=== PATIENT | male | born 1965 | race Caucasian/White ===

== ENCOUNTER 2021-05-04 03:33 | Outpatient (CLI) | payer BC, SELFPAY ==
[2021-05-04 15:06] LABS: Abs Immature Grans 0.05 10^3/uL (0.0-0.06); Absolute Basophil Count 0.06 10^3/uL (0.0-0.2); Absolute Eosinophil Count 0.27 10^3/uL (0.0-0.7); Absolute Monocyte Count 0.73 10^3/uL (0.1-0.8); Absolute Neutrophil Count 5.79 10^3/uL (1.2-6.7); Basophils % 0.7; HCT 43.8 % (40.0-50.0); HGB 14.7 g/dL (13.5-17.5); Immature Grans % 0.6; Lymphocytes % 23.3; MCH 29.3 pg (27.0-33.0); MCHC 33.6 % (32.0-36.0); MCV 87.3 fL (80-95); MPV 11.3 fL (8.0-11.0); Monocytes % 8.1; Neutrophils % 64.3; Nucleated RBC 0 %; Platelet Count 192 10^3/uL (130-400); RBC 5.02 10^6/uL (4.36-5.78); RDW 13.8 % (11.8-14.1); RDW-SD 43.4 fL
[2021-05-04 15:08] LABS: ESR 3 mm/hr (0-20)
[2021-05-04 16:59] LABS: ALT 42 U/L (16-63); AST 21 U/L (15-37); Albumin 4.1 g/dL (3.4-5.0); Alkaline Phosphatase 77 U/L (46-116); Bilirubin, Direct 0.2 mg/dL (0.0-0.2); Bilirubin, Total 0.9 mg/dL (0.2-1.0); Total Protein 6.8 g/dL (6.4-8.2)
== END 2021-05-04 03:34 | disposition home or self-care (01) ==
LOC: LBO 03:33
PROVIDERS: Visit Provider Internal Medicine
DX: L40.50 Arthropathic psoriasis, unspecified (principal); L40.9 Psoriasis, unspecified; M25.561 Pain in right knee; M25.562 Pain in left knee; G89.29 Other chronic pain
CPT/HCPCS: 36415; 80076; 85652; 82565; 85025; 86140

== ENCOUNTER → 2021-05-11 02:54 | Outpatient (CLI) | payer BC, SELFPAY ==
--- NOTE | 2021-05-11 15:10 | DI.RAD_ITS ---
Exam(s) XR LUMBAR SPINE AP, LAT EXAM: XR LUMBAR SPINE AP, LAT CLINICAL HISTORY: CHRONIC LOW BACK PAIN,M54.41SI JOINT DISEASE,M53.3. TECHNIQUE: 2D digital imaging was performed. COMPARISON: No exams were available for comparison FINDINGS: 3 views No evidence of compression fracture nor significant listhesis. No pars defects. There is moderate d isc space narrowing at each level in the lumbar spine. There also facet arthropathy changes at multi ple levels. No scoliosis. There appears to be probable spinal canal stenosis here. No scoliosis. No osseous lesions. Left-sided osteophytes noted at L1-2 level. IMPRESSION: Chronic multilevel degenerative changes. There is most probably also an element of spinal canal sten osis. If clinically indicated follow-up MRI can be performed. DATA REPOSITORY: RADIATION DOSE DELIVERED:
--- NOTE | 2021-05-11 15:10 | DI.RAD_ITS ---
Exam(s) XR SACROILIAC JOINTS EXAM: XR SACROILIAC JOINTS CLINICAL HISTORY: INFLAMMATORY ARTHOPATHY WITH BACK AND SI JOINT PAIN,M54.441,M53.3. TECHNIQUE: 2D digital imaging was performed. COMPARISON: No exams were available for comparison FINDINGS: 3 views None no evidence of fracture. No obvious radiographic evidence of sacroiliitis. No ankylosis of the SI joints. Visualized hips appear unremarkable. No osseous lesions IMPRESSION: DATA REPOSITORY: RADIATION DOSE DELIVERED:
== END ==
PROVIDERS: Visit Provider Internal Medicine
DX: M54.41 Lumbago with sciatica, right side (principal); M53.3 Sacrococcygeal disorders, not elsewhere classified; M51.16 Intervertebral disc disorders with radiculopathy, lumbar region; M47.26 Other spondylosis with radiculopathy, lumbar region; M48.061 Spinal stenosis, lumbar region without neurogenic claudication; G89.29 Other chronic pain
CPT/HCPCS: 72100; 72202

== ENCOUNTER 2021-06-01 05:02 | Outpatient (CLI) | payer BC, SELFPAY | END 2021-06-01 05:03 | disposition home or self-care (01) | LOC: LBO 05:02 | PROVIDERS: Visit Provider Internal Medicine ==

== ENCOUNTER 2021-06-29 04:06 | Outpatient (CLI) | payer BC, SELFPAY ==
[2021-06-29 14:59] LABS: Abs Immature Grans 0.08 10^3/uL (0.0-0.06); Absolute Basophil Count 0.07 10^3/uL (0.0-0.2); Absolute Eosinophil Count 0.23 10^3/uL (0.0-0.7); Absolute Lymphocyte Count 2.22 10^3/uL (1.2-3.4); Absolute Monocyte Count 0.62 10^3/uL (0.1-0.8); Absolute Neutrophil Count 5.47 10^3/uL (1.2-6.7); Basophils % 0.8; Eosinophils % 2.6; HCT 43.2 % (40.0-50.0); HGB 14.5 g/dL (13.5-17.5); Immature Grans % 0.9; Lymphocytes % 25.5; MCH 29.1 pg (27.0-33.0); MCHC 33.6 % (32.0-36.0); MCV 87 fL (80-95); MPV 11.1 fL (8.0-11.0); Monocytes % 7.1; Neutrophils % 63.1; Platelet Count 211 10^3/uL (130-400); RBC 4.98 10^6/uL (4.36-5.78); RDW 13.4 % (11.8-14.1); RDW-SD 41.8 fL; WBC 8.69 10^3/uL (4.4-10.8)
[2021-06-29 15:28] LABS: ESR 3 mm/hr (0-20)
[2021-06-29 16:38] LABS: ALT 46 U/L (16-63); AST 26 U/L (15-37); Albumin 4.2 g/dL (3.4-5.0); Alkaline Phosphatase 92 U/L (46-116); Bilirubin, Direct 0.3 mg/dL (0.0-0.2); C-Reactive Protein 0.13 mg/dL (0.0-0.3); CREATININE 0.9 mg/dL (0.70-1.30); Total Protein 7.2 g/dL (6.4-8.2)
== END 2021-06-29 04:07 | disposition home or self-care (01) ==
LOC: LBO 04:06
PROVIDERS: Visit Provider Internal Medicine
DX: L40.50 Arthropathic psoriasis, unspecified (principal); L40.9 Psoriasis, unspecified; M25.561 Pain in right knee; M25.562 Pain in left knee; G89.29 Other chronic pain
CPT/HCPCS: 36415; 80076; 85652; 82565; 85025; 86140

== ENCOUNTER 2021-07-23 12:08 | Outpatient (CLI) | payer BC, SELFPAY | END 2021-07-23 12:09 | disposition home or self-care (01) | LOC: DIORS 12:09 | PROVIDERS: Visit Provider Physician Assistant ==

== ENCOUNTER 2021-08-12 02:39 | Outpatient (CLI) | payer BC, SELFPAY ==
[2021-08-12 11:42] LABS: ESR 5 mm/hr (0-20)
[2021-08-12 11:43] LABS: Abs Immature Grans 0.05 10^3/uL (0.0-0.06); Absolute Basophil Count 0.07 10^3/uL (0.0-0.2); Absolute Eosinophil Count 0.18 10^3/uL (0.0-0.7); Absolute Lymphocyte Count 1.81 10^3/uL (1.2-3.4); Absolute Monocyte Count 0.54 10^3/uL (0.1-0.8); Absolute Neutrophil Count 4.35 10^3/uL (1.2-6.7); Eosinophils % 2.6; HCT 43.9 % (40.0-50.0); HGB 14.7 g/dL (13.5-17.5); Immature Grans % 0.7; Lymphocytes % 25.9; MCH 28.9 pg (27.0-33.0); MCHC 33.5 % (32.0-36.0); MCV 86 fL (80-95); MPV 11.2 fL (8.0-11.0); Monocytes % 7.7; Neutrophils % 62.1; Platelet Count 186 10^3/uL (130-400); RBC 5.09 10^6/uL (4.36-5.78); RDW 13.3 % (11.8-14.1); RDW-SD 41.1 fL
[2021-08-12 12:39] LABS: ALT 48 U/L (16-63); AST 23 U/L (15-37); Alkaline Phosphatase 73 U/L (46-116); Bilirubin, Direct 0.1 mg/dL (0.0-0.2); Bilirubin, Total 0.9 mg/dL (0.2-1.0); C-Reactive Protein 0.09 mg/dL (0.0-0.3); Total Protein 7.2 g/dL (6.4-8.2)
== END 2021-08-12 02:40 | disposition home or self-care (01) ==
PROVIDERS: Visit Provider Internal Medicine
DX: L40.50 Arthropathic psoriasis, unspecified (principal); M25.561 Pain in right knee; M25.562 Pain in left knee; G89.29 Other chronic pain
CPT/HCPCS: 36415; 80076; 85652; 82565; 85025; 86140

== ENCOUNTER → 2021-09-08 02:36 | Outpatient (CLI) | payer BC, SELFPAY ==
--- NOTE | 2021-09-08 12:15 | DI.MRI_ITS ---
Exam(s) MR PELVIS WO EXAM: MR PELVIS WO CLINICAL HISTORY: PSORIATIC ARTHRITIS, L40.50; CHRONIC BILAT LBP W/RT-SIDED SCIATICA TECHNIQUE: Multiplanar multisequence MRI of Pelvis was performed COMPARISON: CR XR SACROILIAC JOINTS from 05/11/2021 FINDINGS: Bones: There is no fracture or contusion pattern. No bone marrow edema is seen. The SI joints and s ymphysis pubis are well maintained. Musculotendinous structures: Mild edema in the subcutaneous tissues posterior to this sacrum. Mild nonspecific edema is seen in the paraspinal muscles. Intrapelvic structures demonstrate no significa nt abnormality. IMPRESSION: No MRI evidence to suggest sacroiliitis. DATA REPOSITORY:
== END ==
PROVIDERS: Visit Provider Internal Medicine
DX: L40.50 Arthropathic psoriasis, unspecified (principal)
CPT/HCPCS: 72195

== ENCOUNTER 2021-09-17 01:55 | Outpatient (CLI) | payer BC, SELFPAY ==
[2021-09-17 07:25] LABS: Abs Immature Grans 0.06 10^3/uL (0.0-0.06); Absolute Basophil Count 0.07 10^3/uL (0.0-0.2); Absolute Lymphocyte Count 2.03 10^3/uL (1.2-3.4); Absolute Monocyte Count 0.63 10^3/uL (0.1-0.8); Basophils % 0.9; ESR 1 mm/hr (0-20); HCT 44.2 % (40.0-50.0); HGB 14.8 g/dL (13.5-17.5); Immature Grans % 0.8; Lymphocytes % 26.7; MCH 29.1 pg (27.0-33.0); MCHC 33.5 % (32.0-36.0); MCV 87 fL (80-95); MPV 10.7 fL (8.0-11.0); Monocytes % 8.3; Neutrophils % 59.3; Platelet Count 185 10^3/uL (130-400); RBC 5.08 10^6/uL (4.36-5.78); RDW 13.7 % (11.8-14.1); RDW-SD 43.3 fL; WBC 7.59 10^3/uL (4.4-10.8)
[2021-09-17 07:54] LABS: ALT 57 U/L (16-63); AST 28 U/L (15-37); Albumin 3.9 g/dL (3.4-5.0); Alkaline Phosphatase 82 U/L (46-116); Bilirubin, Direct 0.1 mg/dL (0.0-0.2); Bilirubin, Total 0.6 mg/dL (0.2-1.0); C-Reactive Protein < 0.05 mg/dL (0.0-0.3)
== END 2021-09-17 01:56 | disposition home or self-care (01) ==
LOC: LBO 01:55
PROVIDERS: Visit Provider Internal Medicine
DX: L40.50 Arthropathic psoriasis, unspecified (principal); L40.9 Psoriasis, unspecified; M25.561 Pain in right knee; M25.562 Pain in left knee; G89.29 Other chronic pain
CPT/HCPCS: 36415; 80076; 85652; 82565; 85025; 86140

== ENCOUNTER 2022-03-29 02:43 | Outpatient (CLI) | payer BC, SELFPAY ==
[2022-03-29 12:30] LABS: Abs Immature Grans 0.03 10^3/uL (0.0-0.06); Absolute Basophil Count 0.08 10^3/uL (0.0-0.2); Absolute Eosinophil Count 0.22 10^3/uL (0.0-0.7); Absolute Lymphocyte Count 2.49 10^3/uL (1.2-3.4); Absolute Monocyte Count 0.61 10^3/uL (0.1-0.8); Absolute Neutrophil Count 4.35 10^3/uL (1.2-6.7); Eosinophils % 2.8; HCT 44.5 % (40.0-50.0); HGB 14.6 g/dL (13.5-17.5); Immature Grans % 0.4; MCH 29.5 pg (27.0-33.0); MCHC 32.8 % (32.0-36.0); MCV 90 fL (80-95); MPV 11.7 fL (8.0-11.0); Monocytes % 7.8; Platelet Count 188 10^3/uL (130-400); RBC 4.95 10^6/uL (4.36-5.78); RDW 13.3 % (11.8-14.1); RDW-SD 43.7 fL; WBC 7.78 10^3/uL (4.4-10.8)
[2022-03-29 12:36] LABS: ESR 1 mm/hr (0-20)
[2022-03-29 12:45] LABS: ALT 89 U/L (16-63); AST 39 U/L (15-37); Albumin 4.2 g/dL (3.4-5.0); Alkaline Phosphatase 74 U/L (46-116); Bilirubin, Direct 0.2 mg/dL (0.0-0.2); Bilirubin, Total 1.1 mg/dL (0.2-1.0); CREATININE 0.9 mg/dL (0.70-1.30); Total Protein 7.1 g/dL (6.4-8.2)
[2022-03-29 12:46] LABS: C-Reactive Protein < 0.05 mg/dL (0.0-0.3)
== END 2022-03-29 02:44 | disposition home or self-care (01) ==
LOC: LOS 02:43
PROVIDERS: Visit Provider Internal Medicine
DX: L40.50 Arthropathic psoriasis, unspecified (principal); Z51.81 Encounter for therapeutic drug level monitoring; Z79.899 Other long term (current) drug therapy; M25.561 Pain in right knee; M25.562 Pain in left knee
CPT/HCPCS: 36415; 80076; 85652; 82565; 85025; 86140

== ENCOUNTER 2022-06-21 03:02 | Outpatient (CLI) | payer BC, SELFPAY ==
[2022-06-21 12:36] LABS: Abs Immature Grans 0.05 10^3/uL (0.0-0.06); Absolute Basophil Count 0.09 10^3/uL (0.0-0.2); Absolute Eosinophil Count 0.23 10^3/uL (0.0-0.7); Absolute Lymphocyte Count 2.37 10^3/uL (1.2-3.4); Absolute Monocyte Count 0.54 10^3/uL (0.1-0.8); Absolute Neutrophil Count 4.86 10^3/uL (1.2-6.7); Basophils % 1.1; Eosinophils % 2.8; HCT 45.3 % (40.0-50.0); HGB 15.6 g/dL (13.5-17.5); Immature Grans % 0.6; Lymphocytes % 29.1; MCH 30.6 pg (27.0-33.0); MCHC 34.4 % (32.0-36.0); MCV 89 fL (80-95); MPV 12.2 fL (8.0-11.0); Monocytes % 6.6; Neutrophils % 59.8; Platelet Count 178 10^3/uL (130-400); RBC 5.09 10^6/uL (4.36-5.78); RDW 13.1 % (11.8-14.1); RDW-SD 42.7 fL; WBC 8.14 10^3/uL (4.4-10.8)
[2022-06-21 12:46] LABS: ESR < 1 mm/hr (0-20)
[2022-06-21 13:20] LABS: ALT 89 U/L (16-63); AST 43 U/L (15-37); Alkaline Phosphatase 73 U/L (46-116); Bilirubin, Direct 0.2 mg/dL (0.0-0.2); Bilirubin, Total 1.1 mg/dL (0.2-1.0); Estimated GFR 87.24 (mL/min/1.73m2); Total Protein 7.2 g/dL (6.4-8.2)
[2022-06-21 13:22] LABS: C-Reactive Protein < 0.05 mg/dL (0.0-0.3)
== END 2022-06-21 03:03 | disposition home or self-care (01) ==
LOC: LOS 03:02
PROVIDERS: Visit Provider Internal Medicine
DX: L40.50 Arthropathic psoriasis, unspecified (principal); M25.562 Pain in left knee; G89.29 Other chronic pain; Z79.899 Other long term (current) drug therapy; Z51.81 Encounter for therapeutic drug level monitoring; L40.9 Psoriasis, unspecified
CPT/HCPCS: 36415; 80076; 85652; 82565; 85025; 86140

== ENCOUNTER 2022-10-14 04:28 | Outpatient (CLI) | payer OTHER, SELFPAY ==
[2022-10-14 12:42] LABS: Abs Immature Grans 0.03 10^3/uL (0.0-0.06); Absolute Basophil Count 0.09 10^3/uL (0.0-0.2); Absolute Eosinophil Count 0.25 10^3/uL (0.0-0.7); Absolute Lymphocyte Count 2.16 10^3/uL (1.2-3.4); Absolute Monocyte Count 0.55 10^3/uL (0.1-0.8); Absolute Neutrophil Count 4.09 10^3/uL (1.2-6.7); Basophils % 1.3; Eosinophils % 3.5; HCT 45.5 % (40.0-50.0); HGB 15.4 g/dL (13.5-17.5); Immature Grans % 0.4; Lymphocytes % 30.1; MCHC 33.8 % (32.0-36.0); MCV 89 fL (80-95); MPV 11.4 fL (8.0-11.0); Monocytes % 7.7; Platelet Count 170 10^3/uL (130-400); RBC 5.14 10^6/uL (4.36-5.78); RDW 13.4 % (11.8-14.1); RDW-SD 43.8 fL; WBC 7.17 10^3/uL (4.4-10.8)
[2022-10-14 12:48] LABS: ESR 2 mm/hr (0-20)
[2022-10-14 12:57] LABS: ALT 73 U/L (16-63); AST 35 U/L (15-37); Albumin 3.9 g/dL (3.4-5.0); Alkaline Phosphatase 78 U/L (46-116); Bilirubin, Direct 0.2 mg/dL (0.0-0.2); C-Reactive Protein < 0.05 mg/dL (0.0-0.3); Total Protein 7.1 g/dL (6.4-8.2)
== END 2022-10-14 04:29 | disposition home or self-care (01) ==
LOC: LOS 04:28
PROVIDERS: Visit Provider Internal Medicine
DX: L40.50 Arthropathic psoriasis, unspecified (principal); Z51.81 Encounter for therapeutic drug level monitoring; Z79.899 Other long term (current) drug therapy; M25.561 Pain in right knee; M25.562 Pain in left knee; G89.29 Other chronic pain
CPT/HCPCS: 36415; 80076; 85652; 82565; 85025; 86140

== ENCOUNTER 2023-01-11 02:25 | Outpatient (CLI) | payer OTHER, SELFPAY ==
[2023-01-11 07:44] LABS: Abs Immature Grans 0.02 10^3/uL (0.0-0.06); Absolute Basophil Count 0.06 10^3/uL (0.0-0.2); Absolute Eosinophil Count 0.22 10^3/uL (0.0-0.7); Absolute Lymphocyte Count 1.99 10^3/uL (1.2-3.4); Absolute Monocyte Count 0.57 10^3/uL (0.1-0.8); Eosinophils % 3.6; HCT 44.4 % (40.0-50.0); HGB 15.6 g/dL (13.5-17.5); Immature Grans % 0.3; Lymphocytes % 32.8; MCH 30.5 pg (27.0-33.0); MCHC 35.1 % (32.0-36.0); MCV 87 fL (80-95); Monocytes % 9.4; Neutrophils % 52.9; Platelet Count 174 10^3/uL (130-400); RBC 5.11 10^6/uL (4.36-5.78); RDW 13.2 % (11.8-14.1); RDW-SD 41.3 fL; WBC 6.06 10^3/uL (4.4-10.8)
[2023-01-11 07:53] LABS: ESR 3 mm/hr (0-20)
[2023-01-11 08:01] LABS: ALT 66 U/L (16-63); AST 34 U/L (15-37); Albumin 3.8 g/dL (3.4-5.0); Alkaline Phosphatase 81 U/L (46-116); Bilirubin, Direct 0.3 mg/dL (0.0-0.2); Bilirubin, Total 1.1 mg/dL (0.2-1.0); C-Reactive Protein 0.12 mg/dL (0.0-0.3); CREATININE 1.1 mg/dL (0.70-1.30); Estimated GFR 77.33 (mL/min/1.73m2)
== END 2023-01-11 02:26 | disposition home or self-care (01) ==
LOC: LBO 02:26
PROVIDERS: Visit Provider Internal Medicine
DX: G89.29 Other chronic pain; M17.0 Bilateral primary osteoarthritis of knee
CPT/HCPCS: 36415; 80076; 85652; 82565; 85025; 86140

== ENCOUNTER 2023-02-21 11:58 | Outpatient (CLI) | payer OTHER, SELFPAY ==
--- NOTE | 2023-02-21 08:00 | DI.RAD_ITS ---
Exam(s) XR KNEE LT 2V AP,LAT EXAM: XR KNEE LT 2V AP,LAT CLINICAL HISTORY: BILAT KNEE PAIN. TECHNIQUE: 2D digital imaging was performed. COMPARISON: CR XR STANDING ALIGNMENT from 02/21/2023 FINDINGS: Two views. There is advanced narrowing of the medial compartment. Mild Verus deformity. Lateral compartment ex hibits normal height. Some degenerative change also noted in the patellofemoral compartment. There is no joint effusion. IMPRESSION: Degenerative changes, most evident in the medial compartment. DATA REPOSITORY: RADIATION DOSE DELIVERED:
--- NOTE | 2023-02-21 08:00 | DI.RAD_ITS ---
Exam(s) XR KNEE RT 2V AP,LAT EXAM: XR KNEE RT 2V AP,LAT CLINICAL HISTORY: BILAT KNEE PAIN. TECHNIQUE: 2D digital imaging was performed. COMPARISON: CR XR KNEE LT 2V AP,LAT from 02/21/2023 FINDINGS: Two views. No evidence of fracture or joint effusion. Moderate narrowing of the medial compartment noted. Late ral compartment exhibits normal height. Some degenerative change noted in the patellofemoral compart ment. No significant osseous lesions. IMPRESSION: Moderate narrowing of the medial compartment of the right knee. DATA REPOSITORY: RADIATION DOSE DELIVERED:
--- NOTE | 2023-02-21 08:00 | DI.RAD_ITS ---
Exam(s) XR STANDING ALIGNMENT EXAM: XR STANDING ALIGNMENT CLINICAL HISTORY: BILAT KNEE PAIN. TECHNIQUE: 2D digital imaging was performed. COMPARISON: DX XR KNEE 3 VIEWS BILAT from 11/11/2020 FINDINGS: There is narrowing of the medial compartments of both knees again noted. Slightly more prominent on the left side. Lateral compartments of both knees exhibit normal height. Hips unremarkable. Ankles unremarkable. Bone density normal. No osseous lesions. IMPRESSION: Advanced narrowing of the medial compartments of both knees, slightly more so than on 11/11/2020. Sl ightly more prominent on the left side. DATA REPOSITORY: RADIATION DOSE DELIVERED:
== END 2023-02-21 11:59 | disposition home or self-care (01) ==
LOC: DIORS 11:58
PROVIDERS: Visit Provider Student in an Organized Health Care Education/Training Program
DX: M17.11 Unilateral primary osteoarthritis, right knee (principal); M17.12 Unilateral primary osteoarthritis, left knee
CPT/HCPCS: 73560; 77073

== ENCOUNTER 2023-03-08 02:34 | Outpatient (CLI) | payer OTHER, SELFPAY ==
[2023-03-08 09:02] LABS: Abs Immature Grans 0.08 10^3/uL (0.0-0.06); Absolute Lymphocyte Count 2.33 10^3/uL (1.2-3.4); Absolute Monocyte Count 0.56 10^3/uL (0.1-0.8); Absolute Neutrophil Count 5.28 10^3/uL (1.2-6.7); Basophils % 1.2; Eosinophils % 3.5; HCT 46.3 % (40.0-50.0); HGB 16.1 g/dL (13.5-17.5); Immature Grans % 0.9; Lymphocytes % 26.9; MCH 30.6 pg (27.0-33.0); MCHC 34.8 % (32.0-36.0); MCV 88 fL (80-95); MPV 11.1 fL (8.0-11.0); Monocytes % 6.5; Platelet Count 166 10^3/uL (130-400); RBC 5.26 10^6/uL (4.36-5.78); RDW 13.4 % (11.8-14.1); RDW-SD 43.1 fL; WBC 8.65 10^3/uL (4.4-10.8)
[2023-03-08 09:12] LABS: ESR 2 mm/hr (0-20)
[2023-03-08 09:53] LABS: ALT 78 U/L (16-63); AST 35 U/L (15-37); Albumin 4.1 g/dL (3.4-5.0); Alkaline Phosphatase 64 U/L (46-116); Anion Gap 10.2 mmol/L (3-11); BUN 18 mg/dL (7-18); Bilirubin, Direct 0.2 mg/dL (0.0-0.2); CO2 25.8 mmol/L (21.0-32.0); CREATININE 0.9 mg/dL (0.70-1.30); Calcium 9.5 mg/dL (8.5-10.1); Chloride 104 mmol/L (98-107); Estimated GFR 98.38 (mL/min/1.73m2); Glucose 119 mg/dL (74-106); Potassium 3.9 mmol/L (3.5-5.1); Sodium 140 mmol/L (136-145); Total Protein 7.3 g/dL (6.4-8.2)
[2023-03-08 09:54] LABS: C-Reactive Protein < 0.05 mg/dL (0.0-0.3)
== END 2023-03-08 02:35 | disposition home or self-care (01) ==
LOC: LBO 02:34
PROVIDERS: Visit Provider Student in an Organized Health Care Education/Training Program
DX: M17.11 Unilateral primary osteoarthritis, right knee (principal); M17.12 Unilateral primary osteoarthritis, left knee; Z01.818 Encounter for other preprocedural examination
CPT/HCPCS: 36415; 80048; 80076; 85652; 85025; 86140

== ENCOUNTER 2023-03-16 06:00 | Observation (INO) | payer OTHER, SELFPAY ==
[2023-03-16] VITALS (17 sets, daily range): BP systolic 116–180; BP diastolic 64–92; PULSE 59–81; RESP 10–18; TEMP 36–37.4; O2SAT 60–100; BMI 34.9
[2023-03-16] MEDS: Lactated Ringers 1,000 ML 80 ML IV (07:57)
[2023-03-16] MEDS: Acetaminophen 500 MG TAB 1000 MG PO ×3 (07:58→20:04)
[2023-03-16] MEDS: Celecoxib 200 MG CAP 400 MG PO (07:58)
[2023-03-16] MEDS: Gabapentin 300 MG CAP PO (07:58)
--- NOTE | 2023-03-16 08:30 | ANES.PREOP_ITS ---
General Info Date of Service Date Performed: 03/16/23 Height: 5 ft 10 in Weight: 110.677 kg Body Mass Index (BMI): 34.9 Surgical Procedure: Operation Date: 03/16/23 09:50 Proposed Procedure Side Surgeon p Knee Total Arthroplasty Bilateral, Cementless CR Bilateral Abad Higginbotham MD Meds Allergies and Home Medications Allergies Allergy/AdvReac Type Severity Reaction Status Date / Time No Known Allergies Allergy Unverified 03/16/23 07:13 Home Medication Medication Instructions Recorded lorazepam 0.5 mg tablet 0.5 mg PO BID 12/09/14 multivitamin (Multi-Day tablet) 1 tab PO DAILY 01/27/15 omega 3-dha 60 mg-epa 90 mg-fish 1 tab PO DAILY 01/27/15 oil 500 mg capsule, delayed release (Fish Oil) aspirin 81 mg tablet,delayed See Rx Instructions PO DAILY 07/23/21 release (Adult Aspirin Regimen) atorvastatin 40 mg tablet 40 mg PO QHS 07/23/21 calcipotriene 0.005 % topical cream 1 applic topical BID 07/23/21 cholecalciferol (vitamin D3) 25 25 mcg PO DAILY 07/23/21 mcg (1,000 unit) capsule clobetasol 0.05 % topical ointment 1 applic topical BID PRN 07/23/21 meloxicam 7.5 mg tablet 7.5 mg PO DAILY 07/23/21 methotrexate (PF) 20 mg/0.8 mL 20 mg subcut QWEEK 07/23/21 subcutaneous syringe adalimumab 40 mg/0.8 mL See Rx Instructions subcut .COMPLEX 02/21/23 subcutaneous syringe kit (Humira) folic acid 1 mg tablet 1 mg PO DAILY 02/21/23 hydrochlorothiazide 12.5 mg tablet 12.5 mg PO DAILY 02/21/23 Current Visit Medications: Current Medications Generic Name Dose Route Start Last Admin Trade Name Freq PRN Reason Stop Dose Admin Acetaminophen 1,000 mg 03/16/23 06:00 03/16/23 07:58 Acetaminophen 500 Mg Tab PO 1,000 mg PREOP OMERO Administration Celecoxib 400 mg 03/16/23 06:00 03/16/23 07:58 Celecoxib 200 Mg Cap PO 400 mg PREOP OMERO Administration Gabapentin 300 mg 03/16/23 06:00 03/16/23 07:58 Gabapentin 300 Mg Cap PO 300 mg PREOP OMERO Administration Tranexamic Acid 1,000 mg/ 60 mls @ 360 mls/hr 03/16/23 06:00 Sodium Chloride IVPB PREOP OMERO Tranexamic Acid 1,000 mg/ 60 mls @ 360 mls/hr 03/16/23 06:00 Sodium Chloride IVPB DIRECTED OMERO Ringer's Solution 1,000 mls @ 80 mls/hr 03/16/23 06:00 03/16/23 07:57 IV 04/14/23 23:59 80 mls/hr INFUSION OMERO Administration Cefazolin Sodium/Dextrose 2 gm in 50 mls @ 100 mls/hr 03/16/23 06:00 Ancef Duplex IVPB 04/14/23 23:59 PREOP OMERO IV Miscellaneous Supplies 1 each 03/16/23 06:00 Iv Access IV 04/14/23 23:59 DIRECTED OMERO Sodium Chloride 0 ml 03/16/23 06:00 Normal Saline Flush 10 Ml Syr IV 04/14/23 23:59 PRN PRN Sodium Chloride 0 ml 03/16/23 06:00 Normal Saline 10 Ml Vial IJ 04/14/23 23:59 DIRECTED PRN Sterile Water 0 ml 03/16/23 06:00 Water,Injection,Sterile 10 Ml Vial IJ 04/14/23 23:59 DIRECTED PRN PFSH Active Problems Active Problems: Problem Status Onset Code Psoriatic arthritis L40.50 Arthritis of right knee M17.11 Arthritis of left knee M17.12 Medical History Medical History Retinal vein occlusion 10/2014 Testicular cancer Borderline systolic HTN Mild obesity Insomnia Medical History Comments:: States cousin doesn't come out of it well. Surgical History Surgical History removal of testicle Tobacco Smoking/Tobacco Use Status: Never Alcohol Alcohol Intake: never Substance Use Substance use: Never Substance use type: does not use Vital Signs and Lab Results Vital Signs Most Recent Vital Signs in EMR: Most Recent Vital Signs Temp Pulse Resp BP Pulse Ox 36.3 C L 65 17 180/88 H 99 03/16/23 07:27 03/16/23 07:27 03/16/23 07:27 03/16/23 07:27 03/16/23 07:27 Lab Results Blood Type / Crossmatch: No Data to Display Complete Blood Count: White Blood Count 8.65 10^3/uL (4.4-10.8) 03/08/23 08:45 Red Blood Count 5.26 10^6/uL (4.36-5.78) 03/08/23 08:45 Hemoglobin 16.1 g/dL (13.5-17.5) 03/08/23 08:45 Hematocrit 46.3 % (40.0-50.0) 03/08/23 08:45 Platelet Count 166 10^3/uL (130-400) 03/08/23 08:45 Complete Metabolic Panel: Sodium 140 mmol/L (136-145) 03/08/23 08:45 Potassium 3.9 mmol/L (3.5-5.1) 03/08/23 08:45 Chloride 104 mmol/L (98-107) 03/08/23 08:45 Carbon Dioxide 25.8 mmol/L (21.0-32.0) 03/08/23 08:45 BUN 18 mg/dL (7-18) 03/08/23 08:45 Creatinine 0.9 mg/dL (0.70-1.30) 03/08/23 08:45 Est GFR (CKD-EPI 2020) 98.38 (mL/min/1.73m2) 03/08/23 08:45 Calcium 9.5 mg/dL (8.5-10.1) 03/08/23 08:45 Albumin 4.1 g/dL (3.4-5.0) 03/08/23 08:45 Glucose 119 mg/dL (74-106) H 03/08/23 08:45 C-Reactive Protein < 0.05 mg/dL (0.0-0.3) 03/08/23 08:45 Liver Function Panel: Alanine Aminotransferase (ALT/SGPT) 78 U/L (16-63) H 03/08/23 0 8:45 Aspartate Amino Transf (AST/SGOT) 35 U/L (15-37) 03/08/23 08:45 Coagulation Panel: No Data to Display Cardiac Panel: No Data to Display Arterial Blood Gas: No Data to Display Venous Blood Gas: No Data to Display Pancreas Panel: No Data to Display Thyroid Panel: No Data to Display Infectious Disease: No Data to Display Blood Cultures: No Data to Display Toxicology Panel: No Data to Display Anesthesia Assessment and Plan Anesthesia History Personal History: No History of Anesthesia Complications Family History: Other Exercise Tolerance Exercise Tolerance: Metabolic Equivalents>4 Pertinent Negatives Pertinent Negatives: No Symptoms of GERD, No Major Cardiovascular Symptoms or Complaints, No Major Pulmonary Symptoms or Complaints and No History of CVA/TIA Cardiac & Pulmonary Exam Cardiac Exam: Normal S1/S2 Heart Sounds Pulmonary Exam: Clear Bilateral Breath Sounds Implantable Cardiac Device Does patient have a Pacemaker or an ICD?: No Airway Exam Known Difficult Airway: No Mallampati Class: 3 Mouth Opening: Normal (> 3cm) Thyromental Distance: Greater than 3 cm Neck Range of Motion: Full ROM Neck Circumference: Normal Teeth Condition: Normal Dentition ASA Classification ASA Score: ASA 2 Emergency Case?: No NPO Status NPO Status: NPO Clears >2 hours, Solids >8 hours Anesthesia Plan Resuscitation Status: Full Code Anesthesia Technique: Spinal Anesthesia Airway Planned: Natural Airway Pain Management: Surgeon and patient request nerve block Monitors Used: Standard Monitors
--- NOTE | 2023-03-16 10:12 | W.ANESNERVE ---
Nerve Block Single Injection Procedure Date and Time Date Performed: 03/16/23 Procedure Start: 09:50 Location Where Procedure Performed Procedure Location: Day Surgery Unit Reason Performed: Postoperative Analgesia Requesting Provider: Abad Higginbotham Timeout Performed Timeout Performed: Yes Monitoring Used ECG, Blood Pressure and SpO2 Sterility Sterility: Hand Hygiene, Surgical Cap, Surgical Mask, Sterile Gloves and Chlorhexidine Sedation Given During Procedure Sedation Given (Indicate Dose Given): Versed IV Dose:: 2 mg Patient Mental Status Patient Mental Status: Awake Nerve Block 1st Nerve Block: Laterality: Bilateral Block Type: Adductor Canal Ultrasound Image Saved?: Yes Needle / Catheter Used: 100mm SonoPlex II Local Anesthetic Bolus (Indicate Dose Given): Lidocaine used for local infiltration of skin, Injected in 3-5ml increments after negative blood aspiration, Half of Total block solution given into each side and Bupivacaine 0.25% Dose:: 20 mL Additives (Indicate Dose Given): Epinephrine to make 1:400,000 (2.5mcg/ml) Dose:: 50 mcg Ultrasound: Sterile probe cover and gel used Nerve Stimulator: Supplement to Ultrasound use and No twitch or parasthesia noted < 0.5 mA Paresthesia: None Procedure Tolerated: No Complications Procedure Outcome: Successful Performed By: Oliver Magaña
[2023-03-16] MEDS: ceFAZolin 2 GM/50 ML BAG IVPB (10:39)
--- NOTE | 2023-03-16 13:33 | W.BRIEF ---
Date of service: 03/16/23 Time of Service: 10:45 Brief Operative Note Procedure/Pre & Post Op Diagnoses/Properties Supervisor: Operation Date: 03/16/23 09:50 Actual Procedures p Knee Total Arthroplasty Bilateral, Cementless CR(Bilateral) - Abad Higginbotham MD Pre-Op Diagnosis: Bilateral Knee Arthritis Post-Op Diagnosis: Bilateral Knee Arthritis Case Staff Physician Properties Supervisor: Marvin Urbina Estimated Blood Loss Output, Estimated Blood Loss 150 Amount Specimen/Culture Specimen(s): None Culture(s): None Complications Complications: None
--- NOTE | 2023-03-16 15:31 | W.ANESPOSTOP ---
Postoperative Evaluation Date, Time and Location Date Performed: 03/16/23 Time Performed: 15:32 Patient Location: PACU Vital Signs Most Recent Imported Vital Signs: Most Recent Vital Signs Temp Pulse Resp BP Pulse Ox 36.1 C L 61 18 146/78 H 98 03/16/23 15:15 03/16/23 15:26 03/16/23 15:26 03/16/23 15:26 03/16/23 15:26 Pain Score Most Recent Pain Score: Most Recent Pain Score Pain Level 0 03/16/23 15:15 Assessment Mental Status: Awake (Alert & Oriented to Patient Baseline) Airway and Respiratory Function: Patent airway with normal (patient baseline) respiratory exam Cardiovascular Function: Hemodynamically Stable Hydration Status: Adequately Hydrated Nausea & Vomiting: No Nausea or Vomiting Pain: Pain is tolerable per patient (spinal still in effect. ) Peripheral Nerve Block: Patient did not receive a nerve block
--- NOTE | 2023-03-16 16:08 | PT.INIE ---
PT Notes Physical Therapy Inpatient Initial Evaluation Date: 03/16/2023 Referring Doctor: JENNIFER Saavedra PT Orders: PT CONSULT: Eval/Treat Precautions: Fall. Standard. WBAT on B LE with AD. Patient Profile/Admitting Diagnosis: Santo is a 57-year-old male with degenerative joint disease of bilateral knees and is status post bilateral total knee arthroplasties on postoperative day 0. PMHX: All Active Problems (Updated 02/21/23 @ 09:22 by JENNIFER Saavedra) Psoriatic arthritis (Acute) Arthritis of right knee (Acute) DEPO MEDROL 07/23/21 Arthritis of left knee (Acute) DEPO MEDROL 07/23/21 Medical History (Updated 02/21/23 @ 09:22 by JENNIFER Saavedra) Retinal vein occlusion 10/2014Testicular cancer Borderline systolic HTN Mild obesity Insomnia Surgical History (Updated 12/09/14 @ 12:40 by Gwendolyn Potts MD) Removal of testicle Social History/Home Situation: Lives with in a private home with 9-10 steps to enter with a rail on one side. Independent with all aspects of ADLs prior to surgery although has had incrasing difficulty with mobility performance due to arthritis progression. Equipment Owned/DME: None Subjective: Seen at 3:08 PM but had minimal ability to move B LE. At 4:08 PM, patient could move R LE more and still with minimal movement on the L. Numbness in B LE though was diminishing. Objective: General Observation: Resting in bed. KYLIE Wraps to B LE. Cryocuff to B knees. Mental Status: Alert and oriented as to person, place, time, and purpose. Able to pay attention, focus, and respond appropriately. Pain: None reported, B knees still numb Vital Signs: taken by Nurse at 15:52 PM: BP 175/92 mmHg, HR 69 BPM, SaO2 100% ROM: tested around 4:08 PM Right Lower Extremity: About 25% of AROM available in hip, knee and ankle Left Lower Extremity: Unable to do any movements in L LE except during first visit, minimal toe flexion and extension Strength: Tested around 4:08 PM Right Lower Extremity: Hip flexors 2-/5. Hip abductors 2-/5. Knee flexors 2-/5. Knee extensors 2-/5. Ankle dorsiflexors 2-/5. Ankle plantarflexors 2-/5. Left Lower Extremity: Hip flexors 1/5. Hip abductors 1/5. Knee flexors 1/5. Knee extensors 1/5. Ankle dorsiflexors 1/5. Ankle plantarflexors 1/5. Bed Mobility/Transfers: Deferred per orthopedic MD as patient was still generally numb in B LE. Gait: Deferred per orthopedic MD as patient was still generally numb in B LE. Balance: Not assessed Special Tests: Not assessed Informed Consent/Education: Patient was instructed in purpose of PT consult and plan of care. Agreeable to proceed with established PT POC to achieve personal goals. ASSESSMENT: Patient was still generally numb and was not safe to be mobilized out of bed at this time. Will plan on continuing evaluation tomorrow morning once patient is more safe and stable. Patient presents with clinical signs and symptoms consistent with current/admitting diagnoses that have resulted to mobility limitations, gait instability, generalized weakness, and overall ADL decline as demonstrated by the following impairment level findings: 1. Decreased strength to b hip and knee major muscle groups 2. Impaired sitting/standing balance 3. Impaired activity tolerance 4. Limitation of joint range of motion in B LE joints 5. Extended effect of anesthesia to B LE muscles limiting mobility assessment today Impairments are contributing to the following functional limitations: 1. Decline in bed mobility skills 2. Decline in transfer skills 3. Difficulty with ambulation without assistive device and physical assistance 4. Increased completion time for mobility ADL performance 5. Increased risk for falls 6. Difficulty with managing steps alone safely Patient is assessed as a [id number] moderate complexity based on the following: History: 57-year-old male with past medical history as indicated above Examination: Demonstrable impairment in strength, balance, and mobility level with underlying impairments and functional limitations as exhibited above Presentation: Evolving Decision Makin moderate complexity Goals: Goals X1 week 1. Supine-Sit independent 2. Sit-Supine independent 3. Sit-Stand independent 4. Stand-Sit independent with FWW 5. Bed-Chair independent with FWW 6. Chair-Bed independent with FWW 7. Independent gait on level surface with use of FWW for at least 300 feet without report of pain nor dyspnea 8. Independent stair negotiation while holding onto B rails for at least 10 steps without report of pain nor dyspnea 9. Independent with home exercise program 10. Good static and dynamic standing balance/tolerance Plan of Care/Treatment Plan: 1-2x/day, 7 days/week x 1 week. Plan of care has been reviewed with the STAFF SERVICES MANAGER providing the service under Physical Therapy direction. Initiate Physical Therapy intervention for pain management as needed, strengthening, bed mobility, transfers, gait, stairs, balance training, and use of assistive device. DISCHARGE RECOMMENDATIONS: [] Home with no services [] [] Home with services [specify] [X] Home with outpatient PT. home when medically cleared by orthopedic surgeon. Recommend outpatient PT services in order to optimize functional mobility outcomes and facilitate return to independent community ambulation without an assistive device. [] SNF for continued rehabilitation [] [] Assisted Care [] [] SNF versus LTC based on ability to participate and progress [] TREATMENT CODE/TIME: [id number] x 17 minutes for 1 unit (16:08-16:25). Thank you for the opportunity to participate in the care of this patient. Smita Norton PT, DPT, CLT [facility] [place], [place]
[2023-03-16] MEDS: hydroCHLOROthiazide 12.5 MG TAB PO (17:00)
[2023-03-16] MEDS: Celecoxib 200 MG CAP PO ×2 (17:01→20:05)
[2023-03-16] MEDS: Folic Acid 1 MG TAB PO (17:02)
[2023-03-16] MEDS: Pantoprazole 40 MG TABCR PO (17:05)
--- NOTE | 2023-03-16 17:23 | W.PM.OP ---
Date of service: 03/16/23 Time of Service: 10:45 Operative Note Operative Note DATE OF PROCEDURE: 03/16/23 PRE-OP DIAGNOSIS: Bilateral Knee Arthritis POST-OP DIAGNOSIS: same PROCEDURE: Bilateral Knee Arthroplasty SURGEON: Abad Higginbotham PUBLIC ADDRESS SERVICER: Carlos Urbina ANESTHESIA TYPE: Spinal Refer to Anesthesia Record ESTIMATED BLOOD LOSS: 150 PATHOLOGY: none sent COMPLICATIONS: None Patient was transported to: PACU Patient's condition: stable Implants: LEFT: 1. Depuy Attune Cementless Cruciate Retaining Femoral Component, Size 6 2. Depuy Attune Cementless Fixed Bearing Tibial Component, Size 6 3. Depuy Attune 6x8 CR/FB Poly 4. Depuy Attune Patellar Component, Size 35 RIGHT: 1. Depuy Attune Cementless Cruciate Retaining Femoral Component, Size 6 2. Depuy Attune Cementless Fixed Bearing Tibial Component, Size 6 3. Depuy Attune 6x6 CR/FB Poly 4. Depuy Attune Patellar Component, Size 35 Indications: I have seen Santo in clinic for symptoms of knee arthritis, confirmed with radiographic findings. He has exhausted nonoperative methods and was having significant limitations in daily function and desired better function and less pain. I discussed the technical details of a knee replacement. I explained the risks of the procedure to include, but not limited to, bleeding, infection, pain, stiffness, fracture, damage to nerves and vessels, damage to muscles and tendons, loosening, need for repeat procedure, blood clot and cardiopulmonary demise. Despite these risks, Santo elected to proceed. Findings: There was significant arthritis throughout both knees. Procedure Description: Santo was greeted in the preoperative holding area where the correct side was identified and marked. The consent was reviewed with the patient and signed. The history and physical was updated. All questions were answered. Preoperative medications were administered: Acetaminophen 1000mg, Celebrex 400mg, and Gabapentin 300mg. An adductor canal block was then administered by the anesthesia team in DSU to both knees. Santo was taken back to the operating room. A spinal anesthestic was then administered. The patient was placed into the supine position on the operating room table. Posts were placed for positioning during the procedure. All bony prominences were well padded. Prophylactic antibiotics in the form of Cefazolin were administered. 1g of Tranxemic Acid was given intravenously within 30 minutes of incision. Both legs were then prepped with Chloraprep and draped in a standard fashion with impervious stockinette. Starting with the left knee, a second prep with Chloraprep was performed prior to application of Iodine impregnated skin protection. A timeout to confirm correct identity, side and site, procedure, allergies, anesthesia, and medical concerns was performed. LEFT KNEE: With the knee in some flexion, a midline incision was made overlying the knee. Full thickness skin flaps were raised once the extensor mechanism was encountered. These were raised medially and laterally. Any bleeding was controlled with electrocautery. Once the extensor mechanism was fully exposed, a medial parapatellar arthrotomy was performed in a flexed position. All bleeding from the arthrotomy and the geniculate arteries was coagulated. A medial subperiosteal peel was performed with electrocautery to the midcoronal plane. Due to the significant varus deformity the entire medial tibial plateau was exposed. The fat pad was removed while keeping the patellar tendon protected. The anterior distal femur synovium was removed for later visualization. The ACL and PCL were resected and the anterior horn of the lateral meniscus was transected. The knee was then flexed with the patella everted. Large osteophytes from the tibia were removed. Large osteophytes from the femur were removed. Using a step drill, and based on preoperative templating, the femoral canal was entered. This was done with a step drill without any difficulty. The intramedullary distal femoral cut guide was inserted, set to a 5 degree valgus cut and 9mm cut thickness. The distal femoral cut guide was then held in position and pinned. With the soft tissues protected, the distal cut was performed. This was passed over a few times to ensure a planar cut. I then turned attention to the tibia. The extramedullary guide was placed onto the leg. The distal aspect was slid medial to adjust for position of center of ankle and stay in line with shaft of the tibia. Approximately 3-5 degrees of posterior slope was kept in the proximal cutting guide. The center of the guide was aligned with the PCL. The stylus was used to assess cut thickness. The medial side, most involved side, was set for a 4mm cut. This was then held in position and pinned into place with 2 additional pins and a cross pin for stability. The medial and lateral collateral ligaments were protected and the cut was performed. With this completed, it was assessed and noted to be of appropriate dimensions. The guide was removed. A spacer block was inserted and the knee was brought into extension. The 7mm spacer block provided full extension, without hyperextension and with stability of both the medial and lateral collateral ligaments was assessed. The pins from the femur and the tibia were then removed. The distal femur was then sized. The anterior stylus was placed onto the lateral ridge of the anterior femur. This indicated a size 6 femur. The external rotation of the guide was adjusted to 0 degrees to match the epicondylar axis, perpendicular to Mariah?s line. The 4-in-1 cutting guide was the placed. The posterior medial femur cut was evaluated and appeared of good thickness. The spacer block was inserted underneath the cutting guide and stability was confirmed in 90 degrees of flexion. An karissa wing was used to confirm appropriate position of the anterior cut to avoid notching. This cutting guide was ensured to be flush on the cut surface and then pinned into place with headed pins. While protecting the soft tissues, quad tendon, and collateral ligaments, the anterior and posterior cuts were performed with a saw. The central two pins were removed and the posterior and anterior chamfers were cut next. The notch-cutting guide was placed. This was pinned to lateralize the femoral component as much as possible while keeping it flush on the cut surface. This was then pinned into position. A reciprocating saw was used to make the notch cut. A rasp smoothed the cut surfaces. The medial and lateral menisci were removed. A trial femoral component was then inserted, impacted down to the cut surfaces, and the lug holes were drilled. A provisional trial tibial component was placed and the knee was brought through range of motion. The polyethylene was trialed until there was good flexion and extension with excellent stability to the medial and lateral collaterals. The patella was tracking without thumbs. A size 8mm polyethylene component provided the best range of motion and stability with less than 2mm gapping with medial and lateral stress and full extension without significant hyperextension. The tibial cut surface was fully exposed. The tibia was then sized as a 6. The tibia had been previously marked during trialing to correspond to the center of the tibial component to help with rotation. The trial was aligned to this carlos, approximately rotated to the medial 1/3rd of the tibial tubercle. The trial was pinned into place. The tibia was prepared with a reamer and a keel punch and lug holes. The knee was then brought into extension and the patella was measured as 26mm. Using the patellar clamp and cut guide, this was resected to a flat surface with at least 13mm of thickness remaining. The size 35 patella fit the best. This was oriented and then clamped into position. The lugs were drilled. The trial components were removed. The final components were opened on the back table. The periosteal and capsular tissues, especially posteriorly, around the knee were then systematically injected with a periarticular cocktail consisting of 246mg of Ropivacaine, 0.5mg of Epinephrine, 0.08mg of Clonidine, and 30mg of Ketorolac, diluted to 100cc. On the back table, with the implants opened, the cement was mixed. One batch of high viscosity cement was prepared with vacuum assistance. After the cement was ready a small amount was placed on the cut surface of the patella and the patellar button was clamped into position and held. While the cement was hardening, the cementless knee components were placed. Starting with the tibial component, the tibia was subluxed anteriorly and the lug holes of the component were lined up. The tibia was then impacted with an impactor and mallet until the tibial component was in contact with the tibia. The final polyethylene component was inserted. Then, the femoral component was inserted. The lug holes were aligned and the component was impacted into position. The knee was irrigated with Irrisept chlorhexidine solution. This was allowed to sit in the knee for 3 minutes and then it was irrigated out with saline. After the cement had finally cured, approximately 15min, the clamp was removed from the patella and the knee was taken through range of motion. The patella was tracking with a no-thumbs technique. The capsule was then reapproximated with a No. 1 Vicryl at multiple locations. The capsule was finally closed with a No. 2 Stratafix, barbed suture. The second dosing of 1g TXA was started. Deep tissues were then reapproximated with 0 Vicryl and 2-0 Vicryl. The skin was closed with a running 3-0 Monocryl in a subcuticular fashion. RIGHT KNEE: Attention was then turned to the right knee. The stockinette was incised and the knee was prepped with ChloraPrep and allowed to dry. An iodine impregnated dressing was then placed. With the knee in some flexion, a midline incision was made overlying the knee. Full thickness skin flaps were raised once the extensor mechanism was encountered. These were raised medially and laterally. Any bleeding was controlled with electrocautery. Once the extensor mechanism was fully exposed, a medial parapatellar arthrotomy was performed in a flexed position. All bleeding from the arthrotomy and the geniculate arteries was coagulated. A medial subperiosteal peel was performed with electrocautery to the midcoronal plane. Due to the significant varus deformity the entire medial tibial plateau was exposed. The fat pad was removed while keeping the patellar tendon protected. The anterior distal femur synovium was removed for later visualization. The ACL and PCL were resected and the anterior horn of the lateral meniscus was transected. The knee was then flexed with the patella everted. Large osteophytes from the tibia were removed. Large osteophytes from the femur were removed. Using a step drill, and based on preoperative templating, the femoral canal was entered. This was done with a step drill without any difficulty. The intramedullary distal femoral cut guide was inserted, set to a 6 degree valgus cut and 9mm cut thickness. The distal femoral cut guide was then held in position and pinned. With the soft tissues protected, the distal cut was performed. This was passed over a few times to ensure a planar cut. I then turned attention to the tibia. The extramedullary guide was placed onto the leg. The distal aspect was slid medial to adjust for position of center of ankle and stay in line with shaft of the tibia. Approximately 3-5 degrees of posterior slope was kept in the proximal cutting guide. The center of the guide was aligned with the PCL. The stylus was used to assess cut thickness. The medial side, most involved side, was set for a 4mm cut. This was then held in position and pinned into place with 2 additional pins and a cross pin for stability. The medial and lateral collateral ligaments were protected and the cut was performed. With this completed, it was assessed and noted to be of appropriate dimensions. The guide was removed. A spacer block was inserted and the knee was brought into extension. The 6mm spacer block provided full extension, without hyperextension and with stability of both the medial and lateral collateral ligaments was assessed. The pins from the femur and the tibia were then removed. The distal femur was then sized. The anterior stylus was placed onto the lateral ridge of the anterior femur. This indicated a size 6 femur. The external rotation of the guide was adjusted to 0 degrees to match the epicondylar axis, perpendicular to Mariah?s line. The 4-in-1 cutting guide was the placed. The posterior medial femur cut was evaluated and appeared of good thickness. The spacer block was inserted underneath the cutting guide and stability was confirmed in 90 degrees of flexion. An karissa wing was used to confirm appropriate position of the anterior cut to avoid notching. This cutting guide was ensured to be flush on the cut surface and then pinned into place with headed pins. While protecting the soft tissues, quad tendon, and collateral ligaments, the anterior and posterior cuts were performed with a saw. The central two pins were removed and the posterior and anterior chamfers were cut next. The notch-cutting guide was placed. This was pinned to lateralize the femoral component as much as possible while keeping it flush on the cut surface. This was then pinned into position. A reciprocating saw was used to make the notch cut. A rasp smoothed the cut surfaces. The medial and lateral menisci were removed. A trial femoral component was then inserted, impacted down to the cut surfaces, and the lug holes were drilled. A provisional trial tibial component was placed and the knee was brought through range of motion. There was noted to be excellent extension and flexion. There was no significant instability. The patella was tracking without thumbs. A size 6mm polyethylene component provided the best range of motion and stability with less than 2mm gapping with medial and lateral stress and full extension without significant hyperextension. The tibial cut surface was fully exposed. The tibia was then sized as a 6. The tibia had been previously marked during trialing to correspond to the center of the tibial component to help with rotation. The trial was aligned to this carlos, approximately rotated to the medial 1/3rd of the tibial tubercle. The trial was pinned into place. The tibia was prepared with a reamer and a keel punch and lug holes. The knee was then brought into extension and the patella was measured as 25mm. Using the patellar clamp and cut guide, this was resected to a flat surface with at least 13mm of thickness remaining. The size 35 patella fit the best. This was oriented and then clamped into position. The lugs were drilled. The trial components were removed. The final components were opened on the back table. The periosteal and capsular tissues, especially posteriorly, around the knee were then systematically injected with a periarticular cocktail consisting of 246mg of Ropivacaine, 0.5mg of Epinephrine, 0.08mg of Clonidine, and 30mg of Ketorolac, diluted to 100cc. On the back table, with the implants opened, the cement was mixed. One batch of high viscosity cement was prepared with vacuum assistance. After the cement was ready a small amount was placed on the cut surface of the patella and the patellar button was clamped into position and held. While the cement was hardening, the cementless knee components were placed. Starting with the tibial component, the tibia was subluxed anteriorly and the lug holes of the component were lined up. The tibia was then impacted with an impactor and mallet until the tibial component was in contact with the tibia. The final polyethylene component was inserted. Then, the femoral component was inserted. The lug holes were aligned and the component was impacted into position. The knee was irrigated with Irrisept chlorhexidine solution. This was allowed to sit in the knee for 3 minutes and then it was irrigated out with saline. After the cement had finally cured, approximately 15min, the clamp was removed from the patella and the knee was taken through range of motion. The patella was tracking with a no-thumbs technique. The capsule was then reapproximated with a No. 1 Vicryl at multiple locations. The capsule was finally closed with a No. 2 Stratafix, barbed suture. Deep tissues were then reapproximated with 0 Vicryl and 2-0 Vicryl. The skin was closed with a running 3-0 Monocryl in a subcuticular fashion. Both incisions were then reinforced with skin glue. A Mepilex silver dressing was applied along with a [id number] KYLIE wrap to both knees. A CryoCuff was applied. Santo was transferred to the hospital bed without difficulty an suffering no apparent complication. Santo has a good prognosis. Physical therapy will start today and without restrictions, weight-bearing as tolerated. Aspirin 81mg BID will be used for DVT prophylaxis.
[2023-03-16] MEDS: ceFAZolin 1 GM/50 ML BAG IVPB (17:49)
[2023-03-16] MEDS: Aspirin E.C. 81 MG TABEC PO (20:04)
[2023-03-16] MEDS: Dexamethasone 4 MG TAB PO (20:05)
[2023-03-16] MEDS: LORazepam 0.5 MG TAB PO (20:05)
[2023-03-16] MEDS: Atorvastatin 40 MG TAB PO (23:05)
[2023-03-17] MEDS: ceFAZolin 1 GM/50 ML BAG IVPB ×2 (01:22→10:41)
[2023-03-17 02:11] VITALS: BP 127/69; PULSE 77; RESP 17; TEMP 36.7; O2SAT 96
[2023-03-17] MEDS: Acetaminophen 500 MG TAB 1000 MG PO (06:47)
[2023-03-17 07:27] VITALS: BP 140/83; PULSE 80; RESP 17; TEMP 37.3; O2SAT 98
[2023-03-17] MEDS: Folic Acid 1 MG TAB PO (07:59)
[2023-03-17] MEDS: hydroCHLOROthiazide 12.5 MG TAB PO (07:59)
[2023-03-17] MEDS: Aspirin E.C. 81 MG TABEC PO (07:59)
[2023-03-17] MEDS: Celecoxib 200 MG CAP PO (07:59)
[2023-03-17] MEDS: Cholecalciferol (Vitamin D3) 1,000 UNIT TAB 1000 UNITS PO (07:59)
[2023-03-17] MEDS: Dexamethasone 4 MG TAB PO (08:00)
[2023-03-17] MEDS: Pantoprazole 40 MG TABCR PO (08:00)
[2023-03-17] MEDS: LORazepam 0.5 MG TAB PO (08:00)
--- NOTE | 2023-03-17 08:35 | PTTR_ITS ---
PT Notes Visit Reasons: OA B/L Knee Physical Therapy Inpatient Treatment Note Date: 03/17/2023 Precautions: Fall. Standard. WBAT on B LE with AD. Patient Profile/Admitting Diagnosis: Santo is a 57-year-old male with degenerative joint disease of bilateral knees and is status post bilateral total knee arthroplasties on postoperative day 0. Subjective: Feels much better. Pain report of up to 7/10 during ambulation that subsided with rest and with icing. Nurse Jenifer aware. Objective: General Observation: Sitting on recliner. KYLIE Wraps to B LE. Cryocuff to B knees. Mental Status: Alert and oriented as to person, place, time, and purpose. Able to pay attention, focus, and respond appropriately. Pain: 7/10 with ambulation Vital Signs: WNL as closley monitored by nursing staff ROM: Right Lower Extremity: Knee flexion 30 to 90 degrees ACTIVELY. Knee extension - 30 degrees. Left Lower Extremity: Knee flexion 25 to 90 degrees ACTIVELY. Knee extension - 25 degrees. Strength: Right Lower Extremity: Hip flexors 4-/5. Hip abductors 4-/5. Knee flexors 3-/5. Knee extensors 3-/5. Ankle dorsiflexors 4-/5. Ankle plantarflexors 4-/5. Left Lower Extremity: Hip flexors 4-/5. Hip abductors 4-/5. Knee flexors 3-/5. Knee extensors 3-/5. Ankle dorsiflexors 4-/5. Ankle plantarflexors 4-/5. Bed Mobility/Transfers: Minimal cueing provided for use of B hands as needed for support, movement sequence, AD management, and posture to reduce fall risk and minimize pain report Sit to stand contact-guard assist Stand to sit standby assist with FWW Bed to chair standby assist with FWW Chair to bed standby assist with FWW Gait: Facilitated safe and correct performance of level surface ambulation covering a distance of 150 feet +100 feet using front wheeled walker with step to reciprocal heel-toe gait pattern requiring contact-guard assist with minimal verbal cueing provided for limb advancement, AD management, and posture to reduce fall risk and minimize pain report. Reported pain at 7?8/10 pain at end of activity, resolved with rest. Stairs: Guided patient with safe and correct navigation of 6 x 4 inch steps and 4 x 6 inch steps while holding onto bilateral rails with step to gait pattern requiring minimal verbal cueing for movement sequence, AD management, and posture to reduce fall risk and minimize pain report. Balance: Static sitting: Normal Dynamic sitting: Normal Static standing: Fair Dyanmic standing: Fair THERA ACT: Trained patient with correct performance of exercises below to maximize motor control, joint flexibility, soft tissue extensibility of the B knee musculature: Access Code: [email or web address] URL: [email or web address] Date: 03/17/2022 Prepared by: Smita Norton Exercises - Supine Quad Set - 1 x daily - 7 x weekly - 1 sets - 10 reps - 5 hold - Supine Heel Slide - 1 x daily - 7 x weekly - 1 sets - 10 reps - 5 hold - Supine Ankle Pumps - 1 x daily - 7 x weekly - 1 sets - 10 reps - 5 hold - Small Range Straight Leg Raise - 1 x daily - 7 x weekly - 1 sets - 10 reps - 5 hold - Seated March - 1 x daily - 7 x weekly - 1 sets - 10 reps - 5 hold ASSESSMENT: Patient requires the use of a front wheeled walker for mobility ADL performance maximize independence and reduce fall risk. Patient presents with clinical signs and symptoms consistent with current/admitting diagnoses that have resulted to mobility limitations, gait instability, generalized weakness, and overall ADL decline as demonstrated by the following impairment level findings: 1. Decreased strength to B hip and knee major muscle groups 2. Impaired sitting/standing balance 3. Impaired activity tolerance 4. Limitation of joint range of motion in B LE joints 5. Extended effect of anesthesia to B LE muscles limiting mobility assessment today Impairments are contributing to the following functional limitations: 1. Decline in bed mobility skills 2. Decline in transfer skills 3. Difficulty with ambulation without assistive device and physical assistance 4. Increased completion time for mobility ADL performance 5. Increased risk for falls 6. Difficulty with managing steps alone safely Plan of Care/Treatment Plan: 1 more tx session for functional mobility training and HEP instcrution. DISCHARGE RECOMMENDATIONS: [] Home with no services [] [] Home with services [specify] [X] Home with outpatient PT. home when medically cleared by orthopedic surgeon. Recommend outpatient PT services in order to optimize functional mobility outcomes and facilitate return to independent community ambulation without an assistive device. [] SNF for continued rehabilitation [] [] [facility] [] [] SNF versus LTC based on ability to participate and progress [] TREATMENT CODE/TIME: 02219 x 47 minutes for 3 units (8:35-09:22).
--- NOTE | 2023-03-17 08:35 | DSE_ITS ---
Date of service: 03/17/23 Time of Service: 07:10 DS: Diagnosis Discharge Diagnosis (1) Arthritis of right knee: Status: Acute (2) Arthritis of left knee: Status: Acute Discharge Plan Disposition Patient Disposition: Home Condition: Good Discharge Details Reason For Visit: OA B/L Knee Admit Date/Time: 03/16/23 06:00 Admit Provider: Abad Higginbotham Attending Provider: Abad Higginbotham Primary Care Provider: FRANKY ALONZO Hospital Course Hospital Course: Patient was admitted to the medical/surgical floor following the procedure. The surgery was tolerated well without any notable medical, surgical, or anesthetic complications. Mobilization began postoperatively. He was voiding spontaneously. Vitals were stable. Physical therapy worked with the patient and was cleared for discharge home. No acute medical issues. Pain was controlled on oral regimen. Home Meds and New Rx's Prescriptions: New celecoxib 200 mg capsule 200 mg PO BID PRN (Reason: pain) Qty: 60 1RF aspirin 81 mg tablet,delayed release (DR/EC) 81 mg PO BID Qty: 60 0RF acetaminophen 500 mg tablet 1,000 mg PO Q8H PRN (Reason: pain) Qty: 90 3RF pantoprazole 40 mg tablet,delayed release (DR/EC) 40 mg PO DAILY Qty: 30 0RF dexamethasone 4 mg tablet 4 mg PO DAILY Qty: 2 0RF Rx Instructions: Starting Post-Operative Day #1 (Day after surgery) gabapentin 300 mg capsule 300 mg PO QHS Qty: 14 0RF oxycodone 5 mg tablet 5 mg PO Q4H PRNQty: 18 0RF Continued methotrexate (PF) 20 mg/0.8 mL syringe 20 mg subcut QWEEK cholecalciferol (vitamin D3) 25 mcg (1,000 unit) capsule 25 mcg PO DAILY atorvastatin 40 mg tablet 40 mg PO QHS calcipotriene 0.005 % cream 1 applic topical BID Rx Instructions: rub in gently and completely--WEEKDAYS ONLY clobetasol 0.05 % ointment 1 applic topical BID PRN Patient Comments: WEEKENDS ONLY hydrochlorothiazide 12.5 mg tablet 12.5 mg PO DAILY folic acid 1 mg tablet 1 mg PO DAILY lorazepam 0.5 MG tablet 0.5 mg PO BID multivitamin [Multi-Day] 1 EACH tablet 1 tab PO DAILY Fish Oil 500 MG capsule,delayed release(DR/EC) 1 tab PO DAILY Held Humira 40 mg/0.8 mL syringe kit See Rx Instructions subcut .COMPLEX Hold Instructions: Resume on 03/30/23. Resume approximately 2 weeks post-op Rx Instructions: inject one - 40 mg/0.8 mL syringe every 2 weeks subcut Discontinued meloxicam 7.5 mg tablet 7.5 mg PO DAILY aspirin [Adult Aspirin Regimen] 81 mg tablet,delayed release (DR/EC) See Rx Instructions PO DAILY Rx Instructions: orally M W F Discharge Instructions Additional Instructions: Total Knee Discharge Instructions Activity: The most important activity is to walk and to work on gentle motion (both flexion and extension). You should try to take short walks a few times a day. It is important that when resting you work on keeping the knee straight. Avoid putting a pillow behind the knee as this will encourage flexion. Work on range of motion exercises as provided by Physical Therapy. - Start outpatient physical therapy within 2 weeks. - You should wear the GOYO hose on both legs for 2 weeks. You may remove these at night. You may also use any compression sock in place of the GOYO hose. - Utilize [employer] to review exercises, see videos on exercises and obtain basic information pertaining to your surgery and your recovery. Dressing: Remove the Leroy wrap by 2 days after your surgery and put on the GOYO stocking given to you from the hospital. Keep the surgical dressing (underneath the LEROY wrap) in place for at least one week. After the first week it may be removed and replaced with light gauze and tape or nothing. The wound and dressing may get wet after 3 days but avoid soaking the dressing or otherwise it will need to be changed. Many people prefer covering the dressing with cling wrap (saran wrap) to minimize it from getting soaked. If it gets wet, just pat dry. If it starts to peel off then it will need to be changed. Medications: - You should take Tylenol and anti-inflammatory Celebrex as your primary pain control medications. If the Celebrex is too expensive or not covered, please call the office for another alternative (Advil/Ibuprofen or Naproxen/Aleve) - You have been prescribed a stronger pain medication Oxycodone for breakthrough pain, take as needed as prescribed. - You have also been prescribed a stomach acid reduction agent Pantoprozole to help reduce stomach acid and reflux. - You have been prescribed Gabapentin to take at night for restlessness and nerve pain. - You will be taking Aspirin 81mg twice a day for DVT prevention unless instructed otherwise. - You have also been prescribed Decadron to take to control post-operative nausea and pain. You will start this tomorrow. - If you have constipation you should take Colace or Miralax (both [id number]). It takes most people 3-4 days to have a bowel movement. Follow-up: 2 weeks If you have any acute concerns or questions, please do not hesitate to contact the office at [phone]. You may contact Dr. Higginbotham with any questions after hours through the hospital at [phone] or on his cell phone at [phone]. Referrals: Abad Higginbotham MD [ [facility] STAFF PHYSICIAN] - Activity:: Activity as Tolerated Equipment/Supplies:: Walker Diet:: As Tolerated Discharge Orders Discharge Orders: Discharge Order (Routine); Ordered 03/17/23 Ordered By: Abad Higginbotham DS: Summary Time Spent with Patient providing and/or coordinating discharge services: Less than 30 minutes Status at Discharge Functional status at discharge: independent ambulation Overall status at discharge: patient is back to baseline Mental Status: mental status grossly normal Speech and Movement: speech and movement normal Mood: congruent mood Affect: normal affect Quality:SDOH Health Related Social Needs: No Data to Display Exam Narrative Exam Narrative: Sitting up in the chair. NAD. AAOX3. RLE dressing c/d/i. Able to SLR. ROM 10-95. SILT DP/SP/Tib. +ADF/APF/EHL/FHL LLE dressing c/di. Able to SLR. ROM 10-90. SILT DP/SP/Tib. +ADF/APF/EHL/FHL. Psych Mental Status: mental status grossly normal Speech and Movement: speech and movement normal Mood: congruent mood Affect: normal affect DS: Data Vitals/I&O Vitals and I&O: Vital Signs Temperature 37.3 C 03/17/23 07:27 Temperature Source Tympanic 03/17/23 07:27 Pulse 80 03/17/23 07:27 Pulse Rhythm Regular 03/17/23 03:03 Respiratory Rate 17 03/17/23 07:27 Respiratory Effort Normal, Non-Labored 03/17/23 03:03 Respiratory Depth Normal 03/17/23 03:03 Respiratory Pattern Normal 03/17/23 03:03 Blood Pressure 140/83 03/17/23 07:27 Blood Pressure Mean 100 03/16/23 09:56 Pulse Oximetry 98 03/17/23 07:27 Respiratory End-tidal CO2 34 03/16/23 14:23 Oxygen Delivery Method Room Air 03/17/23 07:27 Oxygen Flow Rate 0 03/17/23 07:27 Pain Level 0 03/17/23 07:27 Comment Pt denies any negative side effects at this time, Evan WELSH was present in the block procedure. call light placed within reach, pt family at bedside, no concerns noted at this time. 03/16/23 09:56 Intake & Output 03/16/23 03/16/23 03/17/23 11:59 23:59 11:59 Intake Total 110 / 8374.470 2593.667 / 1708.667 50 / 50 Output Total 1350 / 1350 Balance 110 / 358.667 248.667 / 358.667 50 / 50 Weight 110.677 kg 107.955 kg Intake: IV 110 / 1068.667 958.667 / 1068.667 50 / 50 Oral 640 / 640 Output: Urine 1200 / 1200 Estimated Blood Loss 150 / 150 Other: Urine Color Yellow Yellow Urine Appearance Clear Clear Urine Odor Normal Normal Stool Size Small Stool Characteristics Soft Emesis Description None Voiding Methods Urinal Toilet PFSH All Active Problems Psoriatic arthritis (Acute) Arthritis of right knee (Acute) DEPO MEDROL 07/23/21 Arthritis of left knee (Acute) DEPO MEDROL 07/23/21 Medical History Retinal vein occlusion 10/2014 Testicular cancer Borderline systolic HTN Mild obesity Insomnia Surgical History removal of testicle Family History Other Myocardial infarction Pheochromocytoma Social History Smoking/Tobacco Use Status: Never Smoking risk assessment performed?: Yes Alcohol Intake: never Drug use: Never Substance use type: does not use Housing: house Do you feel safe at home: Yes Do you feel safe in your relationship?: Yes Time Spent with Patient Time Spent with Patient: <45 minutes Time was spent: preparing to see the patient(eg.review tests), obtaining and/or reviewing separately otained hiistory and counseling the patient
[2023-03-17 11:22] VITALS: BP 148/81; PULSE 75; RESP 19; TEMP 37.4; O2SAT 98
== END 2023-03-17 13:04 | disposition home or self-care (01) ==
LOC: MS 15:29 → PDS 03-17 07:23
PROVIDERS: Admitting Provider Student in an Organized Health Care Education/Training Program; Visit Provider Student in an Organized Health Care Education/Training Program
PROC: 0SRC0JZ Replacement of Right Knee Joint with Synthetic Substitute, Open Approach (ICD-10-PCS; CPT 27447; principal; 2023-03-16 09:30)
DX: M17.0 Bilateral primary osteoarthritis of knee (principal); Z79.899 Other long term (current) drug therapy; L40.50 Arthropathic psoriasis, unspecified; E66.9 Obesity, unspecified; G47.00 Insomnia, unspecified
CPT/HCPCS: 27447; 76942; 96365; 97162; 97530; C1776; G0378; J0665; J0690; J1100; J2250; J2371; J2405; J2704; J8540

== ENCOUNTER 2023-03-31 14:48 | Outpatient (CLI) | payer OTHER, SELFPAY ==
--- NOTE | 2023-03-31 09:42 | DI.RAD_ITS ---
Exam(s) XR KNEE LT 1V XR STANDING ALIGNMENT XR KNEE RT 1V EXAM: XR STANDING ALIGNMENT and XR knee bilateral 1 V CLINICAL HISTORY: 1ST POST OP BILAT TKAS. TECHNIQUE: 2D digital imaging was performed. Six images were obtained. COMPARISON: CR XR KNEE RT 2V AP,LAT from 02/21/2023 CR XR KNEE LT 2V AP,LAT from 02/21/2023 CR XR STANDING ALIGNMENT from 02/21/2023 FINDINGS: BONES: The hips are well maintained. The patient has bilateral total knee replacements now. The ort hopedic hardware appear in good position. There is mild soft tissue swelling around the knees bilate rally. The ankles are well maintained.There is no significant leg length discrepancy. SOFT TISSUE: Normal. IMPRESSION: There are bilateral total knee replacements. DATA REPOSITORY: RADIATION DOSE DELIVERED:
== END 2023-03-31 14:49 | disposition home or self-care (01) ==
LOC: DIORS 14:55
PROVIDERS: PCP Internal Medicine; Visit Provider Student in an Organized Health Care Education/Training Program
DX: Z96.653 Presence of artificial knee joint, bilateral (principal); Z47.1 Aftercare following joint replacement surgery
CPT/HCPCS: 73560; 77073

== ENCOUNTER 2023-05-24 04:01 | Outpatient (CLI) | payer OTHER, SELFPAY ==
[2023-05-24 07:31] LABS: Abs Immature Grans 0.04 10^3/uL (0.0-0.06); Absolute Lymphocyte Count 1.96 10^3/uL (1.2-3.4); Absolute Monocyte Count 0.53 10^3/uL (0.1-0.8); Absolute Neutrophil Count 4.12 10^3/uL (1.2-6.7); Basophils % 1.4; Eosinophils % 4.3; HCT 45.2 % (40.0-50.0); HGB 15.4 g/dL (13.5-17.5); Immature Grans % 0.6; Lymphocytes % 27.8; MCH 30.3 pg (27.0-33.0); MCHC 34.1 % (32.0-36.0); MCV 89 fL (80-95); MPV 10.9 fL (8.0-11.0); Monocytes % 7.5; Neutrophils % 58.4; Platelet Count 187 10^3/uL (130-400); RBC 5.08 10^6/uL (4.36-5.78); RDW 13.6 % (11.8-14.1); RDW-SD 44.2 fL; WBC 7.05 10^3/uL (4.4-10.8)
[2023-05-24 07:37] LABS: ESR 2 mm/hr (0-20)
[2023-05-24 07:54] LABS: ALT 71 U/L (16-63); AST 41 U/L (15-37); Albumin 4.1 g/dL (3.4-5.0); Alkaline Phosphatase 90 U/L (46-116); Bilirubin, Direct 0.2 mg/dL (0.0-0.2); Bilirubin, Total 1.1 mg/dL (0.2-1.0); C-Reactive Protein < 0.50 mg/dL (<or=0.5); Total Protein 7.6 g/dL (6.4-8.2)
[2023-05-24 17:24] LABS: Bilirubin Negative (Negative); Blood Negative (Negative); Clarity Clear (Clear); Glucose Negative (Negative); Ketones Negative (Negative); Leukocyte Esterase Negative (Negative); Nitrite Negative (Negative); Urobilinogen 0.2 mg/dL (Up to 0.2); pH 5.5 (5-8)
== END 2023-05-24 04:02 | disposition home or self-care (01) ==
LOC: LBO 04:01
PROVIDERS: PCP Internal Medicine; Visit Provider Internal Medicine
DX: G89.29 Other chronic pain; M17.0 Bilateral primary osteoarthritis of knee
CPT/HCPCS: 36415; 80076; 85652; 81003; 85025; 86140

== ENCOUNTER 2023-08-17 02:31 | Outpatient (CLI) | payer OTHER, SELFPAY ==
[2023-08-17 11:12] LABS: HCT 43.8 % (40.0-50.0); HGB 15.2 g/dL (13.5-17.5); MCH 29.9 pg (27.0-33.0); MCHC 34.7 % (32.0-36.0); MCV 86 fL (80-95); MPV 11.9 fL (8.0-11.0); Platelet Count 178 10^3/uL (130-400); RBC 5.09 10^6/uL (4.36-5.78); RDW 13.4 % (11.8-14.1); RDW-SD 41.5 fL; WBC 7.69 10^3/uL (4.4-10.8)
[2023-08-17 11:16] LABS: ESR 5 mm/hr (0-20)
[2023-08-17 11:34] LABS: ALT 69 U/L (16-63); AST 36 U/L (15-37); Albumin 4.2 g/dL (3.4-5.0); Alkaline Phosphatase 81 U/L (46-116); Bilirubin, Direct 0.3 mg/dL (0.0-0.2); Bilirubin, Total 1.53 mg/dL (0.2-1.0); C-Reactive Protein < 0.50 mg/dL (<or=0.5); Total Protein 7.8 g/dL (6.4-8.2)
[2023-08-17 13:49] LABS: Abs Immature Grans 0.07 10^3/uL (0.0-0.06); Absolute Basophil Count 0.08 10^3/uL (0.0-0.2); Absolute Lymphocyte Count 2.16 10^3/uL (1.2-3.4); Absolute Monocyte Count 0.55 10^3/uL (0.1-0.8); Absolute Neutrophil Count 4.53 10^3/uL (1.2-6.7); Basophils % 1.1 %; Eosinophils % 2.6 %; Immature Grans % 0.9 %; Lymphocytes % 28.5 %; Monocytes % 7.2 %; Neutrophils % 59.7 %
== END 2023-08-17 02:32 | disposition home or self-care (01) ==
PROVIDERS: Student in an Organized Health Care Education/Training Program; PCP Internal Medicine; Visit Provider Internal Medicine
DX: M17.11 Unilateral primary osteoarthritis, right knee (principal); M17.12 Unilateral primary osteoarthritis, left knee; Z01.818 Encounter for other preprocedural examination; M25.561 Pain in right knee; M25.562 Pain in left knee; G89.29 Other chronic pain; M17.0 Bilateral primary osteoarthritis of knee
CPT/HCPCS: 36415; 80076; 85027; 85652; 85007; 86140

== ENCOUNTER 2024-03-19 15:31 | Outpatient (CLI) | payer OTHER, SELFPAY ==
--- NOTE | 2024-03-19 07:45 | DI.RAD_ITS ---
Exam(s) XR KNEE RT 2V AP,LAT EXAM: XR KNEE RT 2V AP,LAT CLINICAL HISTORY: ANNUAL F/U BILAT TKAs. TECHNIQUE: 2D digital imaging was performed. COMPARISON: CR XR KNEE LT 2V AP,LAT from 03/19/2024 FINDINGS: Two views No evidence or loosening of the components of the prosthesis. No evidence of osteomyelitis. IMPRESSION: Satisfactory appearance of the prosthesis. DATA REPOSITORY: RADIATION DOSE DELIVERED:
--- NOTE | 2024-03-19 07:45 | DI.RAD_ITS ---
Exam(s) XR KNEE LT 2V AP,LAT EXAM: XR KNEE LT 2V AP,LAT CLINICAL HISTORY: ANNUAL F/U BILAT TKAs. TECHNIQUE: 2D digital imaging was performed. COMPARISON: CR XR KNEE RT 1V from 03/31/2023 CR XR STANDING ALIGNMENT from 03/31/2023 FINDINGS: Two views Stable position alignment of the components of the prosthesis. No fracture or loosening evident. No evidence of osteomyelitis. IMPRESSION: Stable satisfactory appearance DATA REPOSITORY: RADIATION DOSE DELIVERED:
== END 2024-03-19 15:32 | disposition home or self-care (01) ==
LOC: DIORS 15:31
PROVIDERS: PCP Internal Medicine; Visit Provider Student in an Organized Health Care Education/Training Program
DX: Z96.653 Presence of artificial knee joint, bilateral (principal); Z47.1 Aftercare following joint replacement surgery
CPT/HCPCS: 73560

== ENCOUNTER 2024-04-11 03:39 | Outpatient (CLI) | payer OTHER, SELFPAY ==
[2024-04-11 12:43] LABS: Abs Immature Grans 0.04 10^3/uL (0.0-0.06); Absolute Basophil Count 0.09 10^3/uL (0.0-0.2); Absolute Lymphocyte Count 1.83 10^3/uL (1.2-3.4); Absolute Monocyte Count 0.46 10^3/uL (0.1-0.8); Absolute Neutrophil Count 4.17 10^3/uL (1.2-6.7); Basophils % 1.3 %; Eosinophils % 2.9 %; HCT 45.4 % (40.0-50.0); HGB 15.1 g/dL (13.5-17.5); Immature Grans % 0.6 %; MCH 30.3 pg (27.0-33.0); MCHC 33.3 % (32.0-36.0); MCV 91 fL (80-95); MPV 12.8 fL (8.0-11.0); Monocytes % 6.8 %; Neutrophils % 61.4 %; Platelet Count 157 10^3/uL (130-400); RBC 4.99 10^6/uL (4.36-5.78); RDW-SD 46.7 fL; WBC 6.79 10^3/uL (4.4-10.8)
[2024-04-11 13:02] LABS: ALT 64 U/L (16-63); AST 37 U/L (15-37); CREATININE 1.2 mg/dL (0.70-1.30); Estimated GFR 69.23 (mL/min/1.73m2)
== END 2024-04-11 03:40 | disposition home or self-care (01) ==
LOC: LOS 03:39
PROVIDERS: PCP Internal Medicine; Visit Provider Internal Medicine
DX: Z51.81 Encounter for therapeutic drug level monitoring (principal); Z79.899 Other long term (current) drug therapy; M19.90 Unspecified osteoarthritis, unspecified site; L40.9 Psoriasis, unspecified; Z79.620 Long term (current) use of immunosuppressive biologic; Z79.621 Long term (current) use of calcineurin inhibitor
CPT/HCPCS: 36415; 82565; 84450; 84460; 85025

== ENCOUNTER 2024-07-05 06:12 | Day surgery (SDC) | payer OTHER, SELFPAY ==
[2024-07-05] VITALS (33 sets, daily range): BP systolic 88–141; BP diastolic 50–77; PULSE 42–61; RESP 8–20; TEMP 36.4–36.7; O2SAT 92–99; BMI 34.6
--- NOTE | 2024-07-05 06:31 | W.ANESPRE ---
General Info Date of Service Date Performed: 07/05/24 Height: 5 ft 10 in Weight: 109.429 kg Body Mass Index (BMI): 34.6 Surgical Procedure: Operation Date: 07/05/24 07:40 Proposed Procedure Side Surgeon p Hernia Inguinal Laparoscopic Left Antony Guy MD Meds Allergies and Home Medications Allergies Allergy/AdvReac Type Severity Reaction Status Date / Time oxycodone AdvReac Dizziness/L Verified 07/05/24 06:32 ighthead Home Medication ?Medication ?Instructions ?Recorded lorazepam 0.5 mg tablet 0.5 mg PO BID 12/09/14 multivitamin (Multi-Day tablet) 1 tab PO DAILY 01/27/15 omega 3-dha 60 mg-epa 90 mg-fish 1 tab PO DAILY 01/27/15 oil 500 mg capsule, delayed release (Fish Oil) atorvastatin 40 mg tablet 40 mg PO QHS 07/23/21 calcipotriene 0.005 % topical cream 1 applic topical BID 07/23/21 cholecalciferol (vitamin D3) 25 25 mcg PO DAILY 07/23/21 mcg (1,000 unit) capsule clobetasol 0.05 % topical ointment 1 applic topical BID PRN 07/23/21 adalimumab 40 mg/0.8 mL See Rx Instructions subcut .COMPLEX 02/21/23 subcutaneous syringe kit (Humira) folic acid 1 mg tablet 1 mg PO DAILY 02/21/23 hydrochlorothiazide 12.5 mg tablet 12.5 mg PO DAILY 02/21/23 acetaminophen 500 mg tablet 1,000 mg (2 x 500 mg) PO Q8H PRN 03/17/23 pain #90 tabs esomeprazole magnesium 20 mg 20 mg PO DAILY 03/18/23 capsule,delayed release (Nexium) amlodipine 2.5 mg tablet 2.5 mg PO DAILY 04/28/23 amoxicillin 500 mg tablet 2,000 mg (4 x 500 mg) PO ONCE #4 11/07/23 tabs losartan 50 mg tablet 50 mg PO DAILY 06/07/24 celecoxib 200 mg capsule (Celebrex) 200 mg PO DAILY 06/26/24 methotrexate (PF) 10 mg/0.4 mL 25 mg subcut QWEEK 06/26/24 subcutaneous auto-injector triamcinolone acetonide 0.5 % 1 applic topical DAILY 06/26/24 topical cream Current Visit Medications: Current Medications Generic Name Dose Route Start Last Admin Trade Name Freq PRN Reason Stop Dose Admin Heparin Sodium (Porcine) 5,000 units 07/05/24 06:00 Heparin 5,000 Units/Ml Vial SC 07/05/24 23:59 PREOP OMERO Ringer's Solution 1,000 mls @ 80 mls/hr 07/05/24 06:00 IV 07/05/24 23:59 [facility] IV Miscellaneous Supplies 1 each 07/05/24 06:00 Iv Access IV 07/05/24 23:59 DIRECTED OMERO Sodium Chloride 0 ml 07/05/24 06:00 Normal Saline Flush 10 Ml Syr IV 07/05/24 23:59 PRN PRN Sodium Chloride 0 ml 07/05/24 06:00 Normal Saline 10 Ml Vial IJ 07/05/24 23:59 DIRECTED PRN Sterile Water 0 ml 07/05/24 06:00 Water,Injection,Sterile 10 Ml Vial IJ 07/05/24 23:59 DIRECTED PRN PFSH Active Problems Active Problems: Problem Status Onset Code Left inguinal hernia Acute K40.90 Psoriatic arthritis Acute L40.50 Medical History Medical History Osteoarthritis Retinal vein occlusion 10/2014 Testicular cancer Borderline systolic HTN Mild obesity Insomnia Surgical History Surgical History History of carpal tunnel repair (B) 2009~ History of total bilateral knee replacement (TKR) (03/16/23) removal of testicle Tobacco Smoking/Tobacco Use Status: Never Alcohol Alcohol Intake: current Alcohol intake frequency: holidays/special occasions only Substance Use Substance use: Never Substance use type: does not use Vital Signs and Lab Results Vital Signs Comment Vital Signs Comment:: Temp Pulse Resp BP Pulse Ox 36.5 C 61 16 141/71 H 99 07/05/24 06:28 07/05/24 06:28 07/05/24 06:28 07/05/24 06:28 07/05/24 06:28 Lab Results Blood Type / Crossmatch: No Data to Display Complete Blood Count: No Data to Display Complete Metabolic Panel: No Data to Display Liver Function Panel: No Data to Display Coagulation Panel: No Data to Display Cardiac Panel: No Data to Display Arterial Blood Gas: No Data to Display Venous Blood Gas: No Data to Display Pancreas Panel: No Data to Display Thyroid Panel: No Data to Display Infectious Disease: No Data to Display Blood Cultures: No Data to Display Toxicology Panel: No Data to Display Anesthesia Assessment and Plan Anesthesia History Personal History: No History of Anesthesia Complications Family History: No Family History of Anesthesia Complications Exercise Tolerance Exercise Tolerance: Metabolic Equivalents>4 Pertinent Negatives Pertinent Negatives: No Symptoms of GERD, No Major Cardiovascular Symptoms or Complaints, No Major Pulmonary Symptoms or Complaints and No History of CVA/TIA Cardiac & Pulmonary Exam Cardiac Exam: Normal S1/S2 Heart Sounds Pulmonary Exam: Clear Bilateral Breath Sounds and No cough or Cold Implantable Cardiac Device Does patient have a Pacemaker or an ICD?: No Airway Exam Known Difficult Airway: No Mallampati Class: 3 Mouth Opening: Normal (> 3cm) Thyromental Distance: Greater than 3 cm Neck Range of Motion: Full ROM Neck Circumference: Normal Teeth Condition: Normal Dentition ASA Classification ASA Score: ASA 2 Emergency Case?: No NPO Status NPO Status: NPO Clears >2 hours, Solids >8 hours Anesthesia Plan Resuscitation Status: Full Code Anesthesia Technique: General Anesthesia Airway Planned: Endotracheal Tube Pain Management: Surgeon and patient request nerve block Monitors Used: Standard Monitors
[2024-07-05] MEDS: Heparin 5,000 UNITS/ML VIAL 5000 UNITS SC (06:45)
[2024-07-05] MEDS: Lactated Ringers 1,000 ML 80 ML IV (07:31)
--- NOTE | 2024-07-05 09:35 | ROE_ITS ---
Operative Note Operative Note Refer to Anesthesia Record Procedure Description: PROCEDURES PERFORMED: 1. Laparoscopic LEFT inguinal hernia repair of primary incarcerated inguinal hernia Preoperative Diagnosis: Reducible primary LEFT inguinal hernia Postoperative Diagnosis: Incarcerated primary indirect inguinal hernia Surgeon: Abimael Guy Assist: Briana Anesthesia: General Anesthesiologist: Shea Indication: Symptomatic reducible LEFT primary inguinal hernia. Findings: Incarcerated sigmoid colon within a large-size indirect defect. Posterior (BEBE) repair with 3D max mesh. No direct and no femoral defect. Complications: None Estimated Blood Loss: (5cc) Scant Specimens removed: None Grafts or implants: 3D max LEFT large mesh Procedure in detail: Written consent was obtained from the patient who was in agreement with the risks, the benefits and the indications for the procedure. The patient was taken to the operating suite and laid supine on the operating table with his right arm tucked. IV antibiotics were given due to immunosupressed history. Venodynes were in place. DVT prophylaxis was confirmed. General anesthesia was administered which was tolerated very well. Anesthesia performed a guided TAP block (see their note for details). We then prepped and draped the abdomen in sterile fashion. A timeout was performed. When we were all in agreement we began the procedure. Additional local anesthetic was injected at each trocar site. Within the umbilicus a small stab incision was made and a 5 mm Optiview trocar was used to enter into the abdomen under direct visualization. The liver was inspected and did not appear cirrhotic. I placed two more 5 mm ports under direct visualization and the umbilical port was upsized to a 12 mm to facilitate passing the mesh and sutures. The patient was placed in Trendelenburg and we had good visualization of the intra-abdominal cavity, pelvis and the left pelvic sidewall. There was a single indirect defect containing a loop of sigmoid colon. Laparoscopic reduction of the incarcerated contents was performed. In standard/usual fashion I created a peritoneal flap. A combination of blunt and sharp dissection was performed using the LigaSure. The hernia sac was essentially scrotal and very stuck. To reduce dissection within the canal and scrotum, I elected to transect across the hernia sac once I had the cord structures dissected off of it posteriorly and nothing was within the hernia sac any longer. The amputated, distal?end of the hernia sac was allowed to retract back down into the scrotum. Next I developed the space all the way medial to beyond the pubic tubercle midline. Rufus's ligament was clearly exposed. There was no femoral defect. Hemostasis was excellent. A 3D max mesh was introduced in usual fashion and laid perfectly within the space I had created. The indirect, direct as well as the femoral spaces(MPO) were all completely covered with significant and adequate overlay. I sutured a portion of the mesh to Rufus's ligament and in t he upper outer quadrant to the fascia using Vicryl. This is done so the mesh would not rotate or migrate. Next I closed the peritoneal flap with the V-loc. I closed the peritoneum defect (where I had transected the hernia sac) with Vicryl in [id number] fashion and this completely closed the hole -thus nothing would be able to herniate through the hole. Hemostasis was excellent. I removed the needles from the abdomen. I closed the 12 mm umbilical defect with Vicryl through the fascia. We closed the skin with Monocryl and put Dermabond on top. The testicle was present in the scrotum after the procedure. The sponge, instrument and sharps count was correct x3 at the end of the procedure. The patient tolerated the procedure well and was taken to the PACU in hemodynamically stable condition. Date of Procedure: 07/05/24
--- NOTE | 2024-07-05 09:35 | W.PM.DSUDISC ---
Date of service: 07/05/24 Discharge Plan Disposition Patient Disposition: Home Condition: Good Discharge Details Attending Provider: Antony Guy Primary Care Provider: FRANKY ALONZO Home Meds and New Rx's Prescriptions: No Action cholecalciferol (vitamin D3) 25 mcg (1,000 unit) capsule 25 mcg PO DAILY atorvastatin 40 mg tablet 40 mg PO QHS calcipotriene 0.005 % cream 1 applic topical BID Rx Instructions: rub in gently and completely--WEEKDAYS ONLY clobetasol 0.05 % ointment 1 applic topical BID PRN Patient Comments: WEEKENDS ONLY hydrochlorothiazide 12.5 mg tablet 12.5 mg PO DAILY folic acid 1 mg tablet 1 mg PO DAILY Humira 40 mg/0.8 mL syringe kit See Rx Instructions subcut .COMPLEX Rx Instructions: inject one - 40 mg/0.8 mL syringe every 2 weeks subcut amlodipine 2.5 mg tablet 2.5 mg PO DAILY lorazepam 0.5 MG tablet 0.5 mg PO BID esomeprazole magnesium [Nexium] 20 mg capsule,delayed release(DR/EC) 20 mg PO DAILY amoxicillin 500 mg tablet 2,000 mg PO ONCE Qty: 4 0RF Rx Instructions: TAKE 4 TABS WITHIN ONE HOUR OF DENTAL PROCEDURE losartan 50 mg tablet 50 mg PO DAILY methotrexate (PF) 10 mg/0.4 mL auto-injector 25 mg subcut QWEEK triamcinolone acetonide 0.5 % cream 1 applic topical DAILY celecoxib [Celebrex] 200 mg capsule 200 mg PO DAILY multivitamin [Multi-Day] 1 EACH tablet 1 tab PO DAILY Fish Oil 500 MG capsule,delayed release(DR/EC) 1 tab PO DAILY acetaminophen 500 mg tablet 1,000 mg PO Q8H PRN (Reason: pain) Qty: 90 3RF Discharge Instructions Additional Instructions: INSTRUCTIONS: Incisions: Keep clean and dry but they do not need to be covered. It is okay to shower but no tub bathing for 1 week. You can peel the glue off after 1 week. Activity: As tolerated. Light duty without any heavy lifting/pulling or pushing for 6-8 weeks. Stay active and mobile but do not do things that are strenuous. Listen to your body. Diet: Regular diet as tolerated. Medications: Resume your immunomodulating medications (Humira, methotrexate) in 4 weeks. If you need to, you can start them sooner. Follow-up: If you are having any issues or concerns call the surgery office immediately. If you want to have a routine follow-up that is perfectly fine and you can call and schedule one. If everything is otherwise going well, you do not need to follow-up. Pain control: Take Tylenol, 1000 mg, every 6 hours on a schedule for the next 3 days. You can use ibuprofen in addition to Tylenol if needed. Ice can be used as needed. Overall: Symptoms should not be worsening. If you have any difficulty breathing or you have return of symptoms of brought you to the hospital or your pain is otherwise worsening each day and you should call the doctor's office or come into the hospital to be checked out. Discharge Orders Discharge Orders: Discharge Order (Routine); Ordered 07/05/24 Ordered By: Antony Guy
[2024-07-05] MEDS: Bupivacaine 0.25% Pres-Free 30 ML VIAL (10:09)
--- NOTE | 2024-07-05 10:41 | W.ANESNERVE ---
Nerve Block Single Injection Procedure Date and Time Date Performed: 07/05/24 Procedure Start: 09:39 Location Where Procedure Performed Procedure Location: Operating Room Procedure Stop: 10:52 Reason Performed: Postoperative Analgesia Requesting Provider: Antony Guy Timeout Performed Timeout Performed: Yes Monitoring Used ECG, Blood Pressure, SpO2, ETCO2 and See EMR for corresponding vital signs Sterility Sterility: Hand Hygiene, Surgical Cap, Surgical Mask, Sterile Gloves, Eye Protection and Chlorhexidine Sedation Given During Procedure Sedation Given (Indicate Dose Given): Other: (See Anesthesia Record for induction dosing) Medication/Route/Dose:: See anesthesia record for induction dosing Patient Mental Status Patient Mental Status: Performed under general anesthesia Nerve Block 1st Nerve Block: Laterality: Bilateral Block Type: TAP Bilateral Ultrasound Image Saved?: Yes Needle / Catheter Used: 120mm SonoPlex II Local Anesthetic Bolus (Indicate Dose Given): None, Injected in 3-5ml increments after negative blood aspiration, Half of Total block solution given into each side, Bupivacaine 0.25% Dose:: 20mL and Exparel Dose:: 20 ml Additives (Indicate Dose Given): Normal Saline (10mL for tissue isolation) Ultrasound: Sterile probe cover and gel used Nerve Stimulator: Not Used Paresthesia: None Procedure Tolerated: No Complications and Patient tolerated well Procedure Outcome: Successful Performed By: James Boyd Supervised By: Shea Baer
--- NOTE | 2024-07-05 12:23 | W.ANESPOSTOP ---
Postoperative Evaluation Date, Time and Location Date Performed: 07/05/24 Time Performed: 12:24 Patient Location: PACU Vital Signs Most Recent Imported Vital Signs: Most Recent Vital Signs Temp Pulse Resp BP Pulse Ox 36.7 C 46 L 15 101/56 L 95 07/05/24 12:03 07/05/24 12:11 07/05/24 12:11 07/05/24 12:10 07/05/24 12:11 Pain Score Most Recent Pain Score: Most Recent Pain Score Pain Level 0 07/05/24 06:28 Assessment Mental Status: Arousable with meaningful communication Airway and Respiratory Function: Patent airway with normal (patient baseline) respiratory exam Cardiovascular Function: Hemodynamically Stable Hydration Status: Adequately Hydrated Nausea & Vomiting: No Nausea or Vomiting Pain: Pain is tolerable per patient Peripheral Nerve Block: Regional nerve block not resolved at time of post operative discharge Teaching Patient Teaching: Discussed Safe Use of Pain Medication Given Recent Anesthesia and Discussed Safe Use of Pain Medication Given Likely or Known NELI
[2024-07-05] MEDS: HYDROmorphone 2 MG/ML SYR IVP (12:55)
[2024-07-05] MEDS: Normal Saline 10 ML VIAL IJ (12:56)
== END 2024-07-05 14:25 | disposition home or self-care (01) ==
PROVIDERS: PCP Internal Medicine; Visit Provider Student in an Organized Health Care Education/Training Program
PROC: (CPT 49650; principal; 2024-07-05 07:30)
DX: K40.90 Unilateral inguinal hernia, without obstruction or gangrene, not specified as recurrent (principal)
CPT/HCPCS: 49650; 64488; C1781; J0131; J0665; J0666; J0690; J1100; J1171; J1644; J2003; J2250; J2371; J2405; J2704; J3010

== ENCOUNTER 2024-08-29 02:27 | Outpatient (CLI) | payer OTHER, SELFPAY ==
[2024-08-29 10:10] LABS: Abs Immature Grans 0.08 10^3/uL (0.0-0.06); HCT 44.8 % (40.0-50.0); HGB 15.5 g/dL (13.5-17.5); Immature Grans % 0.9 %; MCH 29.4 pg (27.0-33.0); MCHC 34.6 % (32.0-36.0); MCV 85 fL (80-95); MPV 11.8 fL (8.0-11.0); Platelet Count 172 10^3/uL (130-400); RBC 5.27 10^6/uL (4.36-5.78); RDW 13.2 % (11.8-14.1); RDW-SD 41.0 fL; WBC 9.11 10^3/uL (4.4-10.8)
[2024-08-29 10:56] LABS: ALT 59 U/L (16-63); AST 33 U/L (15-37); Estimated GFR 100.69 (mL/min/1.73m2)
== END 2024-08-29 02:28 | disposition home or self-care (01) ==
LOC: LBO 02:27
PROVIDERS: PCP Internal Medicine; Visit Provider Internal Medicine
DX: Z51.81 Encounter for therapeutic drug level monitoring (principal); Z79.899 Other long term (current) drug therapy; M19.90 Unspecified osteoarthritis, unspecified site; L40.9 Psoriasis, unspecified; Z79.631 Long term (current) use of antimetabolite agent; Z79.620 Long term (current) use of immunosuppressive biologic
CPT/HCPCS: 36415; 82565; 84450; 84460; 85025

== ENCOUNTER 2024-10-03 01:19 | Outpatient (CLI) | payer OTHER, SELFPAY ==
--- NOTE | 2024-10-03 07:30 | DI.MRI_ITS ---
Exam(s) MR IAC BRAIN WO/W EXAM: MR IAC BRAIN WO/W CLINICAL HISTORY: LT greater than rt sn hearing loss,IMPAIRMENT OF SPEECH,H90.3. TECHNIQUE: Multiplanar multisequence MRI of the brain and internal auditory canals was performed. CONTRAST MATERIAL: IV Contrast: 20 mL of Dotarem contrast administered. COMPARISON: No exams were available for comparison FINDINGS: VENTRICLES AND EXTRA AXIAL SPACES: Normal in size and morphology for the patient's age. HEMORRHAGE: None. CEREBRAL PARENCHYMA: No focus of restricted diffusion to suggest acute infarct. No space-occupying lesion identified. MIDLINE SHIFT: None. BRAINSTEM/CEREBELLUM: Normal. CALVARIUM: Normal. ENHANCEMENT: No suspicious enhancement identified. VISUALIZED PARANASAL SINUSES/MASTOIDS: Clear. [place]: Normal flow void. PITUITARY GLAND: Unremarkable. IAC/CP ANGLE: The internal auditory canals are within normal limits. The cerebellar pontine angles are unremarkable. No enhancing lesions are seen. Visualized portion of the facial nerves appear within normal limits. OTHER FINDINGS: None. IMPRESSION: 1. There is no evidence of an acute infarct, intracranial mass or enhancing lesion. 2. There is no evidence of a mass or enhancing lesion involving the internal auditory canals or the cerebellopontine angles. DATA REPOSITORY:
[2024-10-03] MEDS: Normal Saline Flush 10 ML SYR IVP (12:34)
[2024-10-03] MEDS: Gadoterate meglumine 20 ML SYRINGE IVP (12:34)
== END 2024-10-03 01:39 ==
LOC: DI 01:19
PROVIDERS: PCP Internal Medicine; Visit Provider Otolaryngology
DX: H90.3 Sensorineural hearing loss, bilateral (principal)
CPT/HCPCS: 70553

== ENCOUNTER 2024-12-26 03:36 | Outpatient (CLI) | payer OTHER, SELFPAY ==
[2024-12-26 07:45] LABS: Abs Immature Grans 0.06 10^3/uL (0.0-0.06); HCT 46.7 % (40.0-50.0); HGB 15.9 g/dL (13.5-17.5); Immature Grans % 0.8 %; MCH 29.8 pg (27.0-33.0); MCHC 34.0 % (32.0-36.0); MCV 88 fL (80-95); MPV 11.5 fL (8.0-11.0); Platelet Count 181 10^3/uL (130-400); RBC 5.34 10^6/uL (4.36-5.78); RDW 13.4 % (11.8-14.1); RDW-SD 42.6 fL; WBC 7.94 10^3/uL (4.4-10.8)
[2024-12-26 08:40] LABS: ALT 51 U/L (10-49); AST 35 U/L (<34); Albumin 4.4 g/dL (3.4-5.0); Alkaline Phosphatase 80 U/L (46-116); Bilirubin, Direct 0.3 mg/dL (<=0.3); Bilirubin, Total 1.10 mg/dL (0.2-1.2); Total Protein 7.0 g/dL (5.7-8.2)
== END 2024-12-26 03:37 | disposition home or self-care (01) ==
LOC: LBO 03:36
PROVIDERS: PCP Internal Medicine; Visit Provider Internal Medicine
DX: L40.9 Psoriasis, unspecified (principal); Z51.81 Encounter for therapeutic drug level monitoring; Z79.899 Other long term (current) drug therapy; M19.90 Unspecified osteoarthritis, unspecified site; Z79.631 Long term (current) use of antimetabolite agent; Z79.620 Long term (current) use of immunosuppressive biologic
CPT/HCPCS: 36415; 80076; 82565; 85025